=== PATIENT | female | born 1955 | race Caucasian/White ===

== ENCOUNTER → 2017-04-03 | Outpatient (CLI) | payer OTHER ==
[~2017-04-03] MED LIST: ACID1TAB7 PO; BACI1TAB3 PO; CIPR500T87 PO; ESCI10TA10 PO; ESCI20TA PO; LATA2.5D3 EACHEYE; LOPE2TAB PO; METR500T PO; MULT-34 PO; OMEP40CA6 PO; PROM12.553 RC; PROM25TA10 PO; PROP60CA8 PO; TRAZ100T15 PO; TRAZ150T68 PO
== END | disposition home or self-care (01) ==
LOC: CFH 13:34
PROVIDERS: ATTEND Internal Medicine Cardiovascular Disease
DX: I08.3 Combined rheumatic disorders of mitral, aortic and tricuspid valves (principal)
CPT/HCPCS: 93306

== ENCOUNTER 2017-06-08 22:47 | Inpatient (IN) | payer OTHER ==
[~2017-06-08] VITALS: Ht 152.4 cm; Wt 69.2 kg
[~2017-06-08 22:47] MED LIST changes: -LOPE2TAB PO; +LOPE2TAB26 PO; +TRAZ150T62 PO; -TRAZ150T68 PO
[2017-06-08] MEDS ORDERED: LORazepam 2 MG/ML, 1ML ONE (23:25)
[2017-06-08] MEDS ORDERED: PROMETHAZINE 25 MG/ML, 1ML ONE (23:25)
[2017-06-08] MEDS ORDERED: ONDANSETRON 2MG/ML, 2ML ONE (23:26)
[2017-06-08] MEDS ORDERED: MORPHINE SULFATE 4 MG/ML, 1ML ONE (23:26)
[2017-06-08] MEDS ORDERED: THIAMINE 100 MG in SODIUM CHLORIDE 0.9% 50 ML IVPB ONE (23:30)
[2017-06-08] MEDS ORDERED: LORazepam 2 MG/ML, 1ML IVPush ONE (23:30)
[2017-06-08] MEDS ORDERED: MORPHINE SULFATE 4 MG/ML, 1ML IVPush PRN (23:30)
[2017-06-08] MEDS ORDERED: SODIUM CHLORIDE 0.9% 1,000ML IVBOLUS ONE ×2 (23:30)
[2017-06-08] MEDS ORDERED: SODIUM CHLORIDE FLUSH 10ML SYR IVF ONE (23:30)
[2017-06-08] MEDS ORDERED: ONDANSETRON 2MG/ML, 2ML IVPush ONE (23:30)
[2017-06-08] MEDS ORDERED: PROMETHAZINE 25 MG/ML, 1ML IM ONE (23:30)
[2017-06-08 23:37] LABS: ASPARTATE AMINO TRANSFERASE 509 U/L (15-37); BLOOD UREA NITROGEN 2 mg/dL (7-18)
[2017-06-08 23:43] LABS: HEMATOCRIT 38.9 % (34.6-47.8); HEMOGLOBIN 12.5 g/dL (11.7-16.4)
[2017-06-09] MEDS ORDERED: MAGNESIUM SULFATE 1 GM, THIAMINE 100 MG, FOLIC ACID 1 MG, MVI ADULT 10 ML in SODIUM CHL... IV ONE
[2017-06-09] MEDS: LORazepam 2 MG/ML, 1ML IVPush PRN ×4 (00:08→11:41)
[2017-06-09] MEDS ORDERED: BISACODYL 10 MG SUPP PR PRN (00:30)
[2017-06-09] MEDS ORDERED: morphine SULFATE 10 MG/ML, 1ML IVPush PRN (00:30)
[2017-06-09] MEDS: SUCRALFATE 1 GM TABLET PO SCH ×5 (00:30→21:00)
[2017-06-09] MEDS ORDERED: POLYETHYLENE GLYCOL 17 GM PACKET PO PRN (00:30)
[2017-06-09] MEDS ORDERED: LORazepam 2 MG/ML, 1ML ONE (00:31)
[2017-06-09] MEDS ORDERED: ONDANSETRON 2MG/ML, 2ML ONE (00:57)
[2017-06-09] MEDS ORDERED: OMEP40CA6 PO (01:12)
[2017-06-09] MEDS ORDERED: PROZAC (01:12)
[2017-06-09] MEDS: ONDANSETRON 2MG/ML, 2ML IVPush PRN ×2 (01:32→08:44)
[2017-06-09 02:40] VITALS: BP 126/75
[2017-06-09] MEDS: LACTOBACILLUS CHEW TABLET PO SCH ×3 (03:59→16:00)
[2017-06-09] MEDS: LATANOPROST OPHTH 0.005%, 2.5ML EACHEYE SCH ×2 (03:59→20:40)
[2017-06-09] MEDS: CEFTRIAXONE PMX 1GM/50ML 50 ML IV SCH (04:44)
[2017-06-09] MEDS: NS + 20MEQ KCL 1,000 ML IV SCH ×3 (04:45→21:40)
[2017-06-09 05:47] LABS: ASPARTATE AMINO TRANSFERASE 325 U/L (15-37); BLOOD UREA NITROGEN 1 mg/dL (7-18); HEMATOCRIT 30.5 % (34.6-47.8); HEMOGLOBIN 10.1 g/dL (11.7-16.4); WHITE BLOOD COUNT 8.2 x10^3/uL (3.4-10)
[2017-06-09] MEDS ORDERED: POTASSIUM CHLORIDE 20 MEQ TAB.ER.PRT PO ONE ×2 (07:00)
[2017-06-09] MEDS ORDERED: POTASSIUM CHLORIDE 40 MEQ in SODIUM CHLORIDE 0.9% 500 ML IV ONE ×2 (07:30)
[2017-06-09] MEDS: PANTOPROZOLE 40MG TABLET PO SCH (07:30)
[2017-06-09] MEDS: SENNA/DOCUSATE TABLET PO SCH (08:01)
[2017-06-09 08:22] LABS: BLOOD UREA NITROGEN 2 mg/dL (7-18)
[2017-06-09] MEDS: PROPRANOLOL 40 MG TABLET PO SCH (08:24)
[2017-06-09 08:40] VITALS: BP 113/82
[2017-06-09] MEDS: MULTIVITAMINS/MINERALS TABLET PO SCH (08:45)
[2017-06-09] MEDS: TEMPLATE NON-FORMULARY MED. (Escitalopram Oxalate** 20 MG) HOMEMEDPO SCH (08:45)
[2017-06-09] MEDS: TRAZODONE 150MG TABLET PO SCH (08:45)
[2017-06-09] MEDS ORDERED: FOLIC ACID 1 MG TABLET PO SCH (09:00)
[2017-06-09] MEDS ORDERED: SODIUM PHOSPHATE 20 MMOL in SODIUM CHLORIDE 0.9% 500 ML IV ONE (09:00)
[2017-06-09] MEDS ORDERED: THIAMINE 100MG TABLET PO SCH (09:00)
[2017-06-09 13:00] VITALS: BP 137/84
[2017-06-09 14:34] LABS: BLOOD UREA NITROGEN 2 mg/dL (7-18)
[2017-06-09 20:00] VITALS: BP 133/93
[2017-06-09 20:19] LABS: BLOOD UREA NITROGEN 2 mg/dL (7-18)
[2017-06-09] MEDS: LACTULOSE 10 GM/15 ML UDC PO SCH (20:40)
[2017-06-09] MEDS: MAGNESIUM OXIDE 400 MG TABLET PO SCH (21:00)
[2017-06-10 02:00] VITALS: BP 149/95
[2017-06-10] MEDS: LACTOBACILLUS CHEW TABLET PO SCH ×4 (02:59→21:39)
[2017-06-10] MEDS: PROPRANOLOL 40 MG TABLET PO SCH ×3 (02:59→21:00)
[2017-06-10] MEDS: POTASSIUM CHLORIDE 20 MEQ TAB.ER.PRT PO SCH ×3 (03:00→16:54)
[2017-06-10] MEDS: CEFTRIAXONE PMX 1GM/50ML 50 ML IV SCH (04:49)
[2017-06-10] MEDS: LORazepam 2 MG/ML, 1ML IVPush PRN (05:34)
[2017-06-10 06:19] LABS: HEMATOCRIT 32.3 % (34.6-47.8); HEMOGLOBIN 10.6 g/dL (11.7-16.4); WHITE BLOOD COUNT 11.1 x10^3/uL (3.4-10)
[2017-06-10 06:30] LABS: ASPARTATE AMINO TRANSFERASE 271 U/L (15-37); BLOOD UREA NITROGEN 3 mg/dL (7-18)
[2017-06-10] MEDS: PANTOPROZOLE 40MG TABLET PO SCH (07:30)
[2017-06-10] MEDS: NS + 20MEQ KCL 1,000 ML IV SCH (07:30)
[2017-06-10 07:40] VITALS: BP 100/70
[2017-06-10] MEDS ORDERED: POTASSIUM CHLORIDE 40 MEQ in SODIUM CHLORIDE 0.9% 500 ML IV ONE (08:00)
[2017-06-10] MEDS ORDERED: LORazepam 2 MG/ML, 1ML IVPush ONE (08:00)
[2017-06-10] MEDS: TEMPLATE NON-FORMULARY MED. (Escitalopram Oxalate** 20 MG) HOMEMEDPO SCH (08:15)
[2017-06-10] MEDS: MULTIVITAMINS/MINERALS TABLET PO SCH (09:00)
[2017-06-10] MEDS: SENNA/DOCUSATE TABLET PO SCH (09:00)
[2017-06-10] MEDS: TRAZODONE 150MG TABLET PO SCH (09:00)
[2017-06-10] MEDS ORDERED: POTASSIUM CHLORIDE 20 MEQ, MAGNESIUM SULFATE 1 GM, THIAMINE 100 MG, FOLIC ACID 1 MG, MV... IV SCH (09:00)
[2017-06-10 09:26] LABS: ABG COLLECTION SITE RIGHT RADIAL; COLLATERAL CIRCULATION TESTING NORMAL
[2017-06-10] MEDS: SUCRALFATE 1 GM TABLET PO SCH ×4 (10:52→21:39)
[2017-06-10] MEDS: MAGNESIUM OXIDE 400 MG TABLET PO SCH ×2 (10:52→21:39)
[2017-06-10] MEDS: LACTULOSE 10 GM/15 ML UDC PO SCH (10:52)
[2017-06-10] MEDS: POTASSIUM CHLORIDE 20 MEQ, MAGNESIUM SULFATE 1 GM, THIAMINE 100 MG, FOLIC ACID 1 MG, MV... IV SCH ×2 (11:26→14:01)
[2017-06-10] MEDS: LORazepam 2 MG/ML, 1ML IV PRN ×3 (11:26→21:40)
[2017-06-10] MEDS ORDERED: LORazepam 2 MG/ML, 1ML IVPush PRN (11:30)
[2017-06-10] MEDS ORDERED: LORazepam 2 MG/ML, 1ML IV PRN ×2 (11:30)
[2017-06-10] MEDS: D5%-0.45NACL+KCL 40MEQ 1,000 ML IV SCH ×2 (11:30→21:39)
[2017-06-10 11:46] LABS: BLOOD UREA NITROGEN 4 mg/dL (7-18)
[2017-06-10] MEDS ORDERED: SODIUM PHOSPHATE 20 MMOL in SODIUM CHLORIDE 0.9% 500 ML IV ONE (12:30)
[2017-06-10 13:23] VITALS: BP 118/79
[2017-06-10] MEDS: LACTULOSE 20 GM/30 ML UDC PO SCH ×2 (16:58→21:41)
[2017-06-10 19:49] VITALS: BP 111/78
[2017-06-10] MEDS: LATANOPROST OPHTH 0.005%, 2.5ML EACHEYE SCH (21:40)
[2017-06-10] MEDS ORDERED: PANTOPRAZOLE 80 MG in SODIUM CHLORIDE 0.9% 50 ML IV ONE (23:00)
[2017-06-11] MEDS: PANTOPRAZOLE 80 MG in SODIUM CHLORIDE 0.9% 100 ML IV SCH ×3 (00:16→20:29)
[2017-06-11] MEDS: LORazepam 2 MG/ML, 1ML IV PRN ×3 (01:00→07:32)
[2017-06-11 01:05] VITALS: BP 132/70
[2017-06-11] MEDS: CEFTRIAXONE PMX 1GM/50ML 50 ML IV SCH (04:30)
[2017-06-11] MEDS: SUCRALFATE 1 GM TABLET PO SCH ×4 (06:22→20:43)
[2017-06-11 07:15] VITALS: BP 125/90
[2017-06-11] MEDS: D5%-0.45NACL+KCL 40MEQ 1,000 ML IV SCH ×2 (07:30→20:32)
[2017-06-11 07:38] LABS: HEMATOCRIT 31.5 % (34.6-47.8); HEMOGLOBIN 10.1 g/dL (11.7-16.4); WHITE BLOOD COUNT 11.6 x10^3/uL (3.4-10)
[2017-06-11 07:39] LABS: ASPARTATE AMINO TRANSFERASE 269 U/L (15-37); BLOOD UREA NITROGEN 5 mg/dL (7-18)
[2017-06-11] MEDS: MULTIVITAMINS/MINERALS TABLET PO SCH (07:48)
[2017-06-11] MEDS: SENNA/DOCUSATE TABLET PO SCH (07:48)
[2017-06-11 08:10] LABS: ANISOCYTOSIS 3+; HYPOCHROMIA 1+; POIKILOCYTOSIS 2+; TARGET CELLS 1+
[2017-06-11 08:11] LABS: OVALOCYTES 1+; POLYCHROMASIA 1+
[2017-06-11] MEDS ORDERED: MIDAZOLAM HCL 25 MG in SODIUM CHLORIDE 0.9% 245 ML IV PRN (08:58)
[2017-06-11] MEDS ORDERED: POTASSIUM PHOSPHATE 44 MEQ in SODIUM CHLORIDE 0.9% 500 ML IV ONE (09:00)
[2017-06-11] MEDS ORDERED: PHARMACY MAY ADJ FOR RENAL FX MC SCH (09:00)
[2017-06-11] MEDS: TEMPLATE NON-FORMULARY MED. (Escitalopram Oxalate** 20 MG) HOMEMEDPO SCH (09:00)
[2017-06-11] MEDS ORDERED: LIDOCAINE-MPF 1%, 2ML ENDO PRN (09:00)
[2017-06-11] MEDS: POTASSIUM CHLORIDE 20 MEQ TAB.ER.PRT PO SCH (10:25)
[2017-06-11] MEDS: MAGNESIUM OXIDE 400 MG TABLET PO SCH ×2 (10:25→20:43)
[2017-06-11] MEDS: POTASSIUM CHLORIDE 20 MEQ, MAGNESIUM SULFATE 1 GM, THIAMINE 100 MG, FOLIC ACID 1 MG, MV... IV SCH (10:25)
[2017-06-11] MEDS: LACTULOSE 20 GM/30 ML UDC PO SCH ×3 (10:26→20:43)
[2017-06-11] MEDS: LACTOBACILLUS CHEW TABLET PO SCH ×3 (10:26→20:43)
[2017-06-11] MEDS: PROPRANOLOL 40 MG TABLET PO SCH ×2 (10:27→20:43)
[2017-06-11 10:54] LABS: ABG COLLECTION SITE RIGHT RADIAL; COLLATERAL CIRCULATION TESTING NORMAL
[2017-06-11] MEDS ORDERED: LIDOCAINE 1%, 50ML ONE (11:59)
[2017-06-11] MEDS ORDERED: ROCURONIUM 10 MG/ML IVPush ONE (12:30)
[2017-06-11] MEDS ORDERED: VECURONIUM 10 MG IVPush ONE (13:00)
[2017-06-11] MEDS ORDERED: SUGAMMADEX 200 MG/2 ML IVPush ONE (13:30)
[2017-06-11] MEDS ORDERED: CHLORDIAZEPOXIDE 25 MG CAPSULE PO PRN (16:00)
[2017-06-11] MEDS ORDERED: SODIUM CHLORIDE 0.9% 1,000ML IVBOLUS ONE (16:00)
[2017-06-11] MEDS ORDERED: POTASSIUM CHLORIDE 20 MEQ PACKET PO SCH (17:00)
[2017-06-11] MEDS ORDERED: ROCURONIUM 10 MG/ML ONE (17:13)
[2017-06-11] MEDS ORDERED: PICC FLUSH PROTOCOL XX SCH (18:30)
[2017-06-11] MEDS: TRAZODONE 150MG TABLET PO SCH (20:43)
[2017-06-11] MEDS: LATANOPROST OPHTH 0.005%, 2.5ML EACHEYE SCH (20:43)
[2017-06-11] MEDS: NOREPINEPHRINE 4 MG in SODIUM CHLORIDE 0.9% 246 ML IV PRN (21:23)
[2017-06-11] MEDS: MIDAZOLAM HCL 50 MG in SODIUM CHLORIDE 0.9% 240 ML IV PRN (21:47)
[2017-06-12] MEDS: CEFTRIAXONE PMX 1GM/50ML 50 ML IV SCH (04:30)
[2017-06-12 04:41] LABS: ABG COLLECTION SITE LEFT RADIAL; COLLATERAL CIRCULATION TESTING NORMAL
[2017-06-12 05:00] VITALS: BP 108/72
[2017-06-12 05:59] LABS: HEMATOCRIT 31.1 % (34.6-47.8); WHITE BLOOD COUNT 9.9 x10^3/uL (3.4-10)
[2017-06-12 06:08] LABS: BLOOD UREA NITROGEN 4 mg/dL (7-18)
[2017-06-12 06:21] LABS: HYPOCHROMIA 1+; POLYCHROMASIA 1+
[2017-06-12 06:22] LABS: ANISOCYTOSIS 2+; OVALOCYTES 1+; TARGET CELLS 1+
[2017-06-12 06:23] LABS: POIKILOCYTOSIS 1+
[2017-06-12] MEDS: SUCRALFATE 1 GM TABLET PO SCH ×4 (07:08→20:39)
[2017-06-12] MEDS: PANTOPRAZOLE 80 MG in SODIUM CHLORIDE 0.9% 100 ML IV SCH (07:09)
[2017-06-12] MEDS: NOREPINEPHRINE 4 MG in SODIUM CHLORIDE 0.9% 246 ML IV PRN ×3 (07:11→21:47)
[2017-06-12] MEDS: MIDAZOLAM HCL 50 MG in SODIUM CHLORIDE 0.9% 240 ML IV PRN (07:11)
[2017-06-12] MEDS ORDERED: MIDAZOLAM HCL 25 MG in SODIUM CHLORIDE 0.9% 245 ML IV PRN (08:58)
[2017-06-12] MEDS: PROPRANOLOL 40 MG TABLET PO SCH ×2 (09:00→20:39)
[2017-06-12] MEDS: SENNA/DOCUSATE TABLET PO SCH (09:00)
[2017-06-12] MEDS: TEMPLATE NON-FORMULARY MED. (Escitalopram Oxalate** 20 MG) HOMEMEDPO SCH (09:00)
[2017-06-12] MEDS: LACTULOSE 20 GM/30 ML UDC PO SCH ×3 (09:08→20:39)
[2017-06-12] MEDS: TRAZODONE 150MG TABLET PO SCH (09:08)
[2017-06-12] MEDS: LACTOBACILLUS CHEW TABLET PO SCH ×3 (09:08→20:39)
[2017-06-12] MEDS: PANTOPRAZOLE 40 MG IV IVPush SCH ×2 (09:08→19:30)
[2017-06-12] MEDS: FOLIC ACID 1 MG TABLET PO SCH (09:08)
[2017-06-12] MEDS: CHLORDIAZEPOXIDE 25 MG CAPSULE PO SCH ×3 (09:08→21:24)
[2017-06-12] MEDS: MULTIVITAMIN LIQUID PO SCH (09:08)
[2017-06-12] MEDS: MAGNESIUM OXIDE 400 MG TABLET PO SCH ×2 (09:08→20:39)
[2017-06-12] MEDS: DIAZEPAM 5 MG/ML, 2ML IVPush SCH ×3 (09:09→21:31)
[2017-06-12] MEDS: SODIUM CHLORIDE 0.45% 1,000 ML IV SCH ×2 (09:11→20:30)
[2017-06-12] MEDS ORDERED: BENZOCAINE AEROSOL SPRAY 20%, 60ML TP ONE (10:30)
[2017-06-12] MEDS ORDERED: D5%-0.45NACL+KCL 40MEQ 1,000 ML IV SCH (11:30)
[2017-06-12] MEDS ORDERED: SODIUM PHOSPHATE 20 MMOL in SODIUM CHLORIDE 0.9% 500 ML IV ONE (12:30)
[2017-06-12] MEDS ORDERED: BENZOCAINE AEROSOL SPRAY 20%, 60ML TP PRN (15:40)
[2017-06-12] MEDS: LATANOPROST OPHTH 0.005%, 2.5ML EACHEYE SCH (20:39)
[2017-06-13] MEDS: DIAZEPAM 5 MG/ML, 2ML IVPush SCH ×3 (03:33→19:10)
[2017-06-13] MEDS: CEFTRIAXONE PMX 1GM/50ML 50 ML IV SCH (04:30)
[2017-06-13 04:35] LABS: ABG COLLECTION SITE RIGHT RADIAL; COLLATERAL CIRCULATION TESTING NORMAL
[2017-06-13 05:00] VITALS: BP 108/61
[2017-06-13 05:21] LABS: BLOOD UREA NITROGEN 3 mg/dL (7-18)
[2017-06-13 05:23] LABS: HEMATOCRIT 32.1 % (34.6-47.8); HEMOGLOBIN 10.3 g/dL (11.7-16.4); WHITE BLOOD COUNT 10.4 x10^3/uL (3.4-10)
[2017-06-13] MEDS: SUCRALFATE 1 GM TABLET PO SCH ×4 (07:28→21:09)
[2017-06-13] MEDS ORDERED: DIAZEPAM 5 MG/ML, 2ML IVPush SCH (08:30)
[2017-06-13] MEDS: PROPRANOLOL 40 MG TABLET PO SCH ×2 (09:00→21:00)
[2017-06-13] MEDS: TEMPLATE NON-FORMULARY MED. (Escitalopram Oxalate** 20 MG) HOMEMEDPO SCH (09:00)
[2017-06-13] MEDS ORDERED: POTASSIUM PHOSPHATE 44 MEQ in SODIUM CHLORIDE 0.9% 500 ML IV ONE (09:00)
[2017-06-13] MEDS: PANTOPRAZOLE 40 MG IV IVPush SCH ×2 (09:37→21:09)
[2017-06-13] MEDS: CHLORDIAZEPOXIDE 25 MG CAPSULE PO SCH ×3 (09:37→22:20)
[2017-06-13] MEDS: LACTOBACILLUS CHEW TABLET PO SCH ×3 (09:37→21:09)
[2017-06-13] MEDS: SENNA/DOCUSATE TABLET PO SCH (09:38)
[2017-06-13] MEDS: MULTIVITAMIN LIQUID PO SCH (09:38)
[2017-06-13] MEDS: FOLIC ACID 1 MG TABLET PO SCH (09:38)
[2017-06-13] MEDS: MAGNESIUM OXIDE 400 MG TABLET PO SCH ×2 (09:38→21:10)
[2017-06-13] MEDS: TRAZODONE 150MG TABLET PO SCH (09:38)
[2017-06-13] MEDS: NOREPINEPHRINE 4 MG in SODIUM CHLORIDE 0.9% 246 ML IV PRN ×2 (09:39→19:11)
[2017-06-13] MEDS: POTASSIUM CHLORIDE 10% 40 MEQ/30 ML UDC PO SCH ×2 (09:39→16:59)
[2017-06-13] MEDS: LACTULOSE 20 GM/30 ML UDC PO SCH ×3 (09:41→21:10)
[2017-06-13] MEDS: SODIUM CHLORIDE 0.45% 1,000 ML IV SCH (16:01)
[2017-06-13] MEDS: MIDAZOLAM HCL 50 MG in SODIUM CHLORIDE 0.9% 240 ML IV PRN (17:28)
[2017-06-13] MEDS: LATANOPROST OPHTH 0.005%, 2.5ML EACHEYE SCH (21:09)
[2017-06-14] MEDS: DIAZEPAM 5 MG/ML, 2ML IVPush SCH ×5 (00:10→23:50)
[2017-06-14] MEDS: SODIUM CHLORIDE 0.45% 1,000 ML IV SCH ×2 (02:14→22:39)
[2017-06-14] MEDS: NOREPINEPHRINE 4 MG in SODIUM CHLORIDE 0.9% 246 ML IV PRN ×4 (02:17→22:39)
[2017-06-14 04:20] VITALS: BP 97/67
[2017-06-14] MEDS: CEFTRIAXONE PMX 1GM/50ML 50 ML IV SCH (04:25)
[2017-06-14 04:29] LABS: ABG COLLECTION SITE RIGHT RADIAL; COLLATERAL CIRCULATION TESTING NORMAL
[2017-06-14 04:56] LABS: ASPARTATE AMINO TRANSFERASE 113 U/L (15-37); BLOOD UREA NITROGEN 5 mg/dL (7-18)
[2017-06-14 05:00] LABS: HEMATOCRIT 34.3 % (34.6-47.8); HEMOGLOBIN 11.2 g/dL (11.7-16.4); WHITE BLOOD COUNT 10.3 x10^3/uL (3.4-10)
[2017-06-14] MEDS: SUCRALFATE 1 GM TABLET PO SCH ×4 (06:40→21:12)
[2017-06-14] MEDS: PANTOPRAZOLE 40 MG IV IVPush SCH ×2 (07:35→20:11)
[2017-06-14] MEDS: LACTOBACILLUS CHEW TABLET PO SCH ×3 (08:54→21:12)
[2017-06-14] MEDS: MAGNESIUM OXIDE 400 MG TABLET PO SCH ×2 (08:54→21:12)
[2017-06-14] MEDS: SENNA/DOCUSATE TABLET PO SCH (08:55)
[2017-06-14] MEDS: FOLIC ACID 1 MG TABLET PO SCH (08:55)
[2017-06-14] MEDS: CHLORDIAZEPOXIDE 25 MG CAPSULE PO SCH ×3 (08:55→21:12)
[2017-06-14] MEDS: MULTIVITAMIN LIQUID PO SCH (08:55)
[2017-06-14] MEDS: PROPRANOLOL 40 MG TABLET PO SCH ×2 (08:55→21:00)
[2017-06-14] MEDS: LACTULOSE 20 GM/30 ML UDC PO SCH ×3 (08:55→21:12)
[2017-06-14] MEDS: TRAZODONE 150MG TABLET PO SCH (08:56)
[2017-06-14] MEDS: TEMPLATE NON-FORMULARY MED. (Escitalopram Oxalate** 20 MG) HOMEMEDPO SCH (08:56)
[2017-06-14] MEDS ORDERED: SODIUM PHOSPHATE 20 MMOL in SODIUM CHLORIDE 0.9% 500 ML IV ONE (12:30)
[2017-06-14] MEDS ORDERED: SODIUM CHLORIDE 0.9% 1,000 ML IV ONE (12:30)
[2017-06-14] MEDS: HYDROCORTISONE 100 MG INJ. IVPush SCH (15:59)
[2017-06-14] MEDS ORDERED: CATHFLO-ALTEPLASE 2 MG/2 ML CATHFLUSH ONE (17:00)
[2017-06-14] MEDS: LATANOPROST OPHTH 0.005%, 2.5ML EACHEYE SCH (21:12)
[2017-06-15] MEDS: HYDROCORTISONE 100 MG INJ. IVPush SCH ×3 (02:07→18:03)
[2017-06-15 04:00] VITALS: BP 98/64
[2017-06-15] MEDS: CEFTRIAXONE PMX 1GM/50ML 50 ML IV SCH (04:01)
[2017-06-15 04:26] LABS: BLOOD UREA NITROGEN 7 mg/dL (7-18)
[2017-06-15 04:40] LABS: ABG COLLECTION SITE RIGHT RADIAL
[2017-06-15] MEDS: NOREPINEPHRINE 4 MG in SODIUM CHLORIDE 0.9% 246 ML IV PRN ×2 (04:56→15:12)
[2017-06-15 04:59] LABS: HEMATOCRIT 35.4 % (34.6-47.8); HEMOGLOBIN 11.4 g/dL (11.7-16.4); WHITE BLOOD COUNT 8.8 x10^3/uL (3.4-10)
[2017-06-15] MEDS: DIAZEPAM 5 MG/ML, 2ML IVPush SCH ×4 (05:36→22:52)
[2017-06-15 05:41] LABS: COLLATERAL CIRCULATION TESTING NORMAL
[2017-06-15] MEDS: PANTOPRAZOLE 40 MG IV IVPush SCH ×2 (06:35→18:02)
[2017-06-15] MEDS: SUCRALFATE 1 GM TABLET PO SCH ×4 (06:35→20:50)
[2017-06-15] MEDS: SODIUM CHLORIDE 0.45% 1,000 ML IV SCH ×3 (06:37→23:29)
[2017-06-15] MEDS: PROPRANOLOL 40 MG TABLET PO SCH (09:00)
[2017-06-15] MEDS: TEMPLATE NON-FORMULARY MED. (Escitalopram Oxalate** 20 MG) HOMEMEDPO SCH (09:00)
[2017-06-15] MEDS: SENNA/DOCUSATE TABLET PO SCH (09:00)
[2017-06-15] MEDS: FOLIC ACID 1 MG TABLET PO SCH (11:12)
[2017-06-15] MEDS: CHLORDIAZEPOXIDE 25 MG CAPSULE PO SCH ×3 (11:13→20:50)
[2017-06-15] MEDS: MULTIVITAMIN LIQUID PO SCH (11:13)
[2017-06-15] MEDS: TRAZODONE 150MG TABLET PO SCH (11:13)
[2017-06-15] MEDS: MAGNESIUM OXIDE 400 MG TABLET PO SCH ×2 (11:13→20:50)
[2017-06-15] MEDS: LACTOBACILLUS CHEW TABLET PO SCH ×3 (11:14→20:50)
[2017-06-15] MEDS: LACTULOSE 20 GM/30 ML UDC PO SCH ×3 (11:14→20:50)
[2017-06-15] MEDS ORDERED: POTASSIUM PHOSPHATE 44 MEQ in SODIUM CHLORIDE 0.9% 500 ML IV ONE (12:30)
[2017-06-15] MEDS: LATANOPROST OPHTH 0.005%, 2.5ML EACHEYE SCH (20:50)
[2017-06-16] MEDS: NOREPINEPHRINE 4 MG in SODIUM CHLORIDE 0.9% 246 ML IV PRN ×2 (01:58→14:04)
[2017-06-16] MEDS: HYDROCORTISONE 100 MG INJ. IVPush SCH ×3 (01:58→18:30)
[2017-06-16 04:15] VITALS: BP 116/69
[2017-06-16 04:26] LABS: ABG COLLECTION SITE RIGHT RADIAL; COLLATERAL CIRCULATION TESTING NORMAL
[2017-06-16] MEDS: DIAZEPAM 5 MG/ML, 2ML IVPush SCH ×4 (04:45→21:16)
[2017-06-16] MEDS: CEFTRIAXONE PMX 1GM/50ML 50 ML IV SCH (04:45)
[2017-06-16 05:23] LABS: BLOOD UREA NITROGEN 10 mg/dL (7-18)
[2017-06-16 05:27] LABS: ASPARTATE AMINO TRANSFERASE 99 U/L (15-37)
[2017-06-16] MEDS: SUCRALFATE 1 GM TABLET PO SCH ×4 (06:46→21:00)
[2017-06-16] MEDS: PANTOPRAZOLE 40 MG IV IVPush SCH ×2 (06:48→18:30)
[2017-06-16 06:54] LABS: HEMATOCRIT 35.9 % (34.6-47.8); HEMOGLOBIN 11.5 g/dL (11.7-16.4); WHITE BLOOD COUNT 10.3 x10^3/uL (3.4-10)
[2017-06-16 07:12] LABS: DIFF TOTAL CELLS COUNTED 100 CELL DIFF
[2017-06-16 07:15] LABS: ANISOCYTOSIS 1+; LARGE PLATELETS 1+; POLYCHROMASIA 1+; VERIFY COUNTS? YES
[2017-06-16] MEDS: SODIUM CHLORIDE 0.45% 1,000 ML IV SCH (08:05)
[2017-06-16] MEDS ORDERED: SODIUM CHLORIDE 0.45% 1,000 ML IV SCH (08:30)
[2017-06-16] MEDS ORDERED: POTASSIUM PHOSPHATE 44 MEQ in SODIUM CHLORIDE 0.9% 500 ML IV ONE (08:30)
[2017-06-16] MEDS: SENNA/DOCUSATE TABLET PO SCH (09:00)
[2017-06-16] MEDS: TEMPLATE NON-FORMULARY MED. (Escitalopram Oxalate** 20 MG) HOMEMEDPO SCH (09:00)
[2017-06-16] MEDS: MULTIVITAMIN LIQUID PO SCH (09:13)
[2017-06-16] MEDS: LACTULOSE 20 GM/30 ML UDC PO SCH ×3 (09:13→20:59)
[2017-06-16] MEDS: MAGNESIUM OXIDE 400 MG TABLET PO SCH ×2 (09:13→20:59)
[2017-06-16] MEDS: CHLORDIAZEPOXIDE 25 MG CAPSULE PO SCH ×4 (09:13→21:01)
[2017-06-16] MEDS: FOLIC ACID 1 MG TABLET PO SCH (09:14)
[2017-06-16] MEDS: LACTOBACILLUS CHEW TABLET PO SCH ×3 (09:14→21:00)
[2017-06-16] MEDS: LATANOPROST OPHTH 0.005%, 2.5ML EACHEYE SCH (20:59)
[2017-06-16] MEDS: TRAZODONE 150MG TABLET PO SCH (21:00)
[2017-06-17] MEDS: HYDROCORTISONE 100 MG INJ. IVPush SCH ×3 (01:25→18:26)
[2017-06-17 04:00] VITALS: BP 84/55
[2017-06-17] MEDS: DIAZEPAM 5 MG/ML, 2ML IVPush SCH ×4 (04:04→23:00)
[2017-06-17] MEDS: CEFTRIAXONE PMX 1GM/50ML 50 ML IV SCH (04:13)
[2017-06-17 04:34] LABS: ABG COLLECTION SITE RIGHT RADIAL; COLLATERAL CIRCULATION TESTING NORMAL
[2017-06-17 04:52] LABS: BLOOD UREA NITROGEN 17 mg/dL (7-18)
[2017-06-17 05:01] LABS: ASPARTATE AMINO TRANSFERASE 130 U/L (15-37)
[2017-06-17 05:46] LABS: HEMATOCRIT 33.1 % (34.6-47.8); HEMOGLOBIN 10.8 g/dL (11.7-16.4); WHITE BLOOD COUNT 12.4 x10^3/uL (3.4-10)
[2017-06-17 05:47] LABS: DIFF TOTAL CELLS COUNTED 100 CELL DIFF
[2017-06-17 05:48] LABS: VERIFY COUNTS? YES
[2017-06-17 05:49] LABS: ANISOCYTOSIS 1+; LARGE PLATELETS 1+; POLYCHROMASIA 1+
[2017-06-17] MEDS: SUCRALFATE 1 GM TABLET PO SCH ×4 (06:43→21:05)
[2017-06-17] MEDS: PANTOPRAZOLE 40 MG IV IVPush SCH ×2 (06:43→19:29)
[2017-06-17] MEDS: TRAZODONE 150MG TABLET PO SCH (08:58)
[2017-06-17] MEDS: LACTOBACILLUS CHEW TABLET PO SCH ×3 (08:58→21:05)
[2017-06-17] MEDS: CHLORDIAZEPOXIDE 25 MG CAPSULE PO SCH ×3 (08:58→21:05)
[2017-06-17] MEDS: LACTULOSE 20 GM/30 ML UDC PO SCH ×3 (08:58→21:05)
[2017-06-17] MEDS: FOLIC ACID 1 MG TABLET PO SCH (08:58)
[2017-06-17] MEDS: SENNA/DOCUSATE TABLET PO SCH (08:59)
[2017-06-17] MEDS: MAGNESIUM OXIDE 400 MG TABLET PO SCH ×2 (08:59→21:05)
[2017-06-17] MEDS: MULTIVITAMIN LIQUID PO SCH (08:59)
[2017-06-17] MEDS: TEMPLATE NON-FORMULARY MED. (Escitalopram Oxalate** 20 MG) HOMEMEDPO SCH (08:59)
[2017-06-17] MEDS: NOREPINEPHRINE 4 MG in SODIUM CHLORIDE 0.9% 246 ML IV PRN (14:53)
[2017-06-17] MEDS: LATANOPROST OPHTH 0.005%, 2.5ML EACHEYE SCH (21:05)
[2017-06-18] MEDS: HYDROCORTISONE 100 MG INJ. IVPush SCH ×3 (02:00→18:11)
[2017-06-18 03:23] LABS: ASPARTATE AMINO TRANSFERASE 194 U/L (15-37); BLOOD UREA NITROGEN 23 mg/dL (7-18)
[2017-06-18 03:26] LABS: HEMATOCRIT 32.6 % (34.6-47.8); HEMOGLOBIN 10.6 g/dL (11.7-16.4); WHITE BLOOD COUNT 14.4 x10^3/uL (3.4-10)
[2017-06-18 03:52] LABS: DIFF TOTAL CELLS COUNTED 100 CELL DIFF
[2017-06-18 03:56] LABS: ANISOCYTOSIS 1+; POLYCHROMASIA 1+; VERIFY COUNTS? YES
[2017-06-18 03:57] LABS: LARGE PLATELETS 1+
[2017-06-18 04:27] LABS: ABG COLLECTION SITE RIGHT RADIAL; COLLATERAL CIRCULATION TESTING NORMAL
[2017-06-18] MEDS: CEFTRIAXONE PMX 1GM/50ML 50 ML IV SCH (04:33)
[2017-06-18 05:00] VITALS: BP 122/75
[2017-06-18] MEDS: DIAZEPAM 5 MG/ML, 2ML IVPush SCH (05:00)
[2017-06-18] MEDS: SUCRALFATE 1 GM TABLET PO SCH ×4 (06:29→20:21)
[2017-06-18] MEDS ORDERED: DIAZEPAM 5 MG/ML, 2ML IVPush PRN (08:30)
[2017-06-18] MEDS: PANTOPRAZOLE 40 MG IV IVPush SCH ×2 (08:55→19:30)
[2017-06-18] MEDS: HEPARIN 5,000 UNITS/ML, 1ML SQ SCH ×2 (08:55→17:02)
[2017-06-18] MEDS: SENNA/DOCUSATE TABLET PO SCH (09:00)
[2017-06-18] MEDS: TEMPLATE NON-FORMULARY MED. (Escitalopram Oxalate** 20 MG) HOMEMEDPO SCH (09:00)
[2017-06-18] MEDS ORDERED: POTASSIUM CHLORIDE 20 MEQ TAB.ER.PRT PO ONE (10:30)
[2017-06-18] MEDS ORDERED: POTASSIUM CHLORIDE 20 MEQ PACKET PO ONE (10:30)
[2017-06-18] MEDS: MAGNESIUM OXIDE 400 MG TABLET PO SCH ×2 (10:33→20:21)
[2017-06-18] MEDS: CHLORDIAZEPOXIDE 25 MG CAPSULE PO SCH ×2 (10:33→20:21)
[2017-06-18] MEDS: LACTULOSE 20 GM/30 ML UDC PO SCH ×3 (10:33→20:21)
[2017-06-18] MEDS: FOLIC ACID 1 MG TABLET PO SCH (10:33)
[2017-06-18] MEDS: LACTOBACILLUS CHEW TABLET PO SCH ×3 (10:33→20:21)
[2017-06-18] MEDS: TRAZODONE 150MG TABLET PO SCH (10:33)
[2017-06-18] MEDS: MULTIVITAMIN LIQUID PO SCH (10:33)
[2017-06-18] MEDS: LATANOPROST OPHTH 0.005%, 2.5ML EACHEYE SCH (20:21)
[2017-06-19] MEDS: HEPARIN 5,000 UNITS/ML, 1ML SQ SCH ×3 (00:28→15:43)
[2017-06-19] MEDS: HYDROCORTISONE 100 MG INJ. IVPush SCH ×3 (02:24→18:23)
[2017-06-19 03:31] LABS: BLOOD UREA NITROGEN 26 mg/dL (7-18)
[2017-06-19] MEDS: CEFTRIAXONE PMX 1GM/50ML 50 ML IV SCH (04:34)
[2017-06-19 04:45] LABS: ABG COLLECTION SITE LEFT RADIAL; COLLATERAL CIRCULATION TESTING NORMAL
[2017-06-19 05:00] VITALS: BP 129/83
[2017-06-19] MEDS: SUCRALFATE 1 GM TABLET PO SCH ×4 (06:18→20:16)
[2017-06-19] MEDS: PANTOPRAZOLE 40 MG IV IVPush SCH ×2 (07:31→19:36)
[2017-06-19] MEDS: TEMPLATE NON-FORMULARY MED. (Escitalopram Oxalate** 20 MG) HOMEMEDPO SCH (09:00)
[2017-06-19] MEDS: SENNA/DOCUSATE TABLET PO SCH (09:00)
[2017-06-19] MEDS ORDERED: POTASSIUM PHOSPHATE 44 MEQ in SODIUM CHLORIDE 0.9% 500 ML IV ONE (09:30)
[2017-06-19 11:25] LABS: HEMATOCRIT 32.8 % (34.6-47.8); HEMOGLOBIN 10.6 g/dL (11.7-16.4); WHITE BLOOD COUNT 15.1 x10^3/uL (3.4-10)
[2017-06-19] MEDS: FOLIC ACID 1 MG TABLET PO SCH (11:26)
[2017-06-19] MEDS: CHLORDIAZEPOXIDE 25 MG CAPSULE PO SCH ×2 (11:26→20:16)
[2017-06-19] MEDS: TRAZODONE 150MG TABLET PO SCH (11:26)
[2017-06-19] MEDS: LACTOBACILLUS CHEW TABLET PO SCH ×3 (11:26→20:16)
[2017-06-19] MEDS: MULTIVITAMIN LIQUID PO SCH (14:24)
[2017-06-19] MEDS: OXYcodone 5 MG/5 ML ORAL.SOL UDC PO PRN ×2 (14:24→20:18)
[2017-06-19] MEDS: LATANOPROST OPHTH 0.005%, 2.5ML EACHEYE SCH (20:16)
[2017-06-20] MEDS: HEPARIN 5,000 UNITS/ML, 1ML SQ SCH ×3 (00:22→17:06)
[2017-06-20] MEDS: HYDROCORTISONE 100 MG INJ. IVPush SCH ×3 (00:22→20:45)
[2017-06-20 02:20] LABS: ASPARTATE AMINO TRANSFERASE 242 U/L (15-37); BLOOD UREA NITROGEN 28 mg/dL (7-18)
[2017-06-20 02:57] LABS: HEMOGLOBIN 9.5 g/dL (11.7-16.4); WHITE BLOOD COUNT 13.1 x10^3/uL (3.4-10)
[2017-06-20 02:58] LABS: DIFF TOTAL CELLS COUNTED 100 CELL DIFF
[2017-06-20 03:01] LABS: VERIFY COUNTS? YES
[2017-06-20 03:02] LABS: ANISOCYTOSIS 2+
[2017-06-20 03:03] LABS: POLYCHROMASIA 1+
[2017-06-20 03:04] LABS: TARGET CELLS 1+
[2017-06-20 03:05] LABS: OVALOCYTES 1+; SCHISTOCYTES 1+
[2017-06-20 03:07] LABS: LARGE PLATELETS 1+
[2017-06-20 04:00] VITALS: BP 116/80
[2017-06-20] MEDS: CEFTRIAXONE PMX 1GM/50ML 50 ML IV SCH (04:33)
[2017-06-20] MEDS: SUCRALFATE 1 GM TABLET PO SCH ×4 (06:05→20:45)
[2017-06-20] MEDS: PANTOPRAZOLE 40 MG IV IVPush SCH ×2 (07:28→09:37)
[2017-06-20] MEDS: MULTIVITAMIN LIQUID PO SCH (08:00)
[2017-06-20] MEDS: FOLIC ACID 1 MG TABLET PO SCH (08:00)
[2017-06-20] MEDS: CHLORDIAZEPOXIDE 25 MG CAPSULE PO SCH (08:00)
[2017-06-20] MEDS: TRAZODONE 150MG TABLET PO SCH (08:00)
[2017-06-20] MEDS: LACTOBACILLUS CHEW TABLET PO SCH ×3 (08:00→20:45)
[2017-06-20] MEDS: SENNA/DOCUSATE TABLET PO SCH (08:00)
[2017-06-20] MEDS: TEMPLATE NON-FORMULARY MED. (Escitalopram Oxalate** 20 MG) HOMEMEDPO SCH (09:00)
[2017-06-20] MEDS: OXYcodone 5 MG/5 ML ORAL.SOL UDC PO PRN ×2 (11:13→17:06)
[2017-06-20 16:26] VITALS: BP 93/62
[2017-06-20 18:41] VITALS: BP 93/65
[2017-06-20] MEDS: LATANOPROST OPHTH 0.005%, 2.5ML EACHEYE SCH (20:45)
[2017-06-21] MEDS: HEPARIN 5,000 UNITS/ML, 1ML SQ SCH ×3 (00:25→17:29)
[2017-06-21] MEDS: OXYcodone 5 MG/5 ML ORAL.SOL UDC PO PRN ×3 (00:29→17:29)
[2017-06-21 02:00] VITALS: BP 108/71
[2017-06-21 05:39] LABS: ASPARTATE AMINO TRANSFERASE 266 U/L (15-37); BLOOD UREA NITROGEN 31 mg/dL (7-18)
[2017-06-21 06:33] LABS: HEMATOCRIT 32.3 % (34.6-47.8); HEMOGLOBIN 10.3 g/dL (11.7-16.4); WHITE BLOOD COUNT 16.1 x10^3/uL (3.4-10)
[2017-06-21 08:16] VITALS: BP 111/76
[2017-06-21] MEDS: SENNA/DOCUSATE TABLET PO SCH (08:31)
[2017-06-21] MEDS: TEMPLATE NON-FORMULARY MED. (Escitalopram Oxalate** 20 MG) HOMEMEDPO SCH (09:00)
[2017-06-21] MEDS: SUCRALFATE 1 GM TABLET PO SCH ×4 (09:58→21:17)
[2017-06-21] MEDS: FOLIC ACID 1 MG TABLET PO SCH (09:58)
[2017-06-21] MEDS: MULTIVITAMIN LIQUID PO SCH (09:59)
[2017-06-21] MEDS: HYDROCORTISONE 100 MG INJ. IVPush SCH ×2 (09:59→21:17)
[2017-06-21] MEDS: PANTOPRAZOLE 40 MG IV IVPush SCH (09:59)
[2017-06-21] MEDS: LACTOBACILLUS CHEW TABLET PO SCH ×3 (09:59→21:17)
[2017-06-21] MEDS: TRAZODONE 150MG TABLET PO SCH (10:00)
[2017-06-21 13:27] VITALS: BP 117/78
[2017-06-21 19:12] VITALS: BP 110/72
[2017-06-21] MEDS: LATANOPROST OPHTH 0.005%, 2.5ML EACHEYE SCH (21:16)
[2017-06-22 00:17] VITALS: BP 108/69
[2017-06-22] MEDS: HEPARIN 5,000 UNITS/ML, 1ML SQ SCH ×3 (00:37→16:30)
[2017-06-22 05:31] LABS: BLOOD UREA NITROGEN 28 mg/dL (7-18)
[2017-06-22 05:36] LABS: ASPARTATE AMINO TRANSFERASE 267 U/L (15-37)
[2017-06-22 06:42] LABS: HEMATOCRIT 30.4 % (34.6-47.8); HEMOGLOBIN 9.9 g/dL (11.7-16.4); WHITE BLOOD COUNT 15.5 x10^3/uL (3.4-10)
[2017-06-22 06:43] LABS: DIFF TOTAL CELLS COUNTED 100 CELL DIFF
[2017-06-22 06:44] LABS: VERIFY COUNTS? YES
[2017-06-22 06:45] LABS: ANISOCYTOSIS 2+; LARGE PLATELETS 1+; POLYCHROMASIA 1+; TARGET CELLS 1+
[2017-06-22 06:46] LABS: GIANT PLATELETS 1+; OVALOCYTES 1+
[2017-06-22 08:14] VITALS: BP 96/65
[2017-06-22] MEDS: TEMPLATE NON-FORMULARY MED. (Escitalopram Oxalate** 20 MG) HOMEMEDPO SCH (09:00)
[2017-06-22] MEDS: SENNA/DOCUSATE TABLET PO SCH (09:00)
[2017-06-22] MEDS: HYDROCORTISONE 100 MG INJ. IVPush SCH ×2 (09:11→23:51)
[2017-06-22] MEDS: LACTOBACILLUS CHEW TABLET PO SCH ×3 (09:11→23:53)
[2017-06-22] MEDS: PANTOPRAZOLE 40 MG IV IVPush SCH (09:11)
[2017-06-22] MEDS: SUCRALFATE 1 GM TABLET PO SCH ×4 (09:11→23:53)
[2017-06-22] MEDS: FOLIC ACID 1 MG TABLET PO SCH (09:11)
[2017-06-22] MEDS: MULTIVITAMIN LIQUID PO SCH (09:12)
[2017-06-22 16:05] VITALS: BP 100/72
[2017-06-22 19:46] VITALS: BP 108/78
[2017-06-22] MEDS: LATANOPROST OPHTH 0.005%, 2.5ML EACHEYE SCH (23:50)
[2017-06-22] MEDS: TRAZODONE 150MG TABLET PO SCH (23:53)
[2017-06-23] MEDS: HEPARIN 5,000 UNITS/ML, 1ML SQ SCH ×3 (00:01→16:40)
[2017-06-23 02:07] VITALS: BP 97/65
[2017-06-23 06:17] LABS: ASPARTATE AMINO TRANSFERASE 260 U/L (15-37); BLOOD UREA NITROGEN 26 mg/dL (7-18)
[2017-06-23 06:28] LABS: HEMATOCRIT 29.8 % (34.6-47.8); HEMOGLOBIN 9.5 g/dL (11.7-16.4); WHITE BLOOD COUNT 14.9 x10^3/uL (3.4-10)
[2017-06-23 07:59] VITALS: BP 99/72
[2017-06-23] MEDS: TEMPLATE NON-FORMULARY MED. (Escitalopram Oxalate** 20 MG) HOMEMEDPO SCH (09:00)
[2017-06-23] MEDS: SENNA/DOCUSATE TABLET PO SCH (09:00)
[2017-06-23] MEDS: SUCRALFATE 1 GM TABLET PO SCH ×4 (09:07→19:45)
[2017-06-23] MEDS: FOLIC ACID 1 MG TABLET PO SCH (09:08)
[2017-06-23] MEDS: HYDROCORTISONE 100 MG INJ. IVPush SCH (09:08)
[2017-06-23] MEDS: LACTOBACILLUS CHEW TABLET PO SCH ×3 (09:08→19:45)
[2017-06-23] MEDS: MULTIVITAMIN LIQUID PO SCH (09:08)
[2017-06-23] MEDS: PANTOPRAZOLE 40 MG IV IVPush SCH (09:08)
[2017-06-23 13:52] VITALS: BP 102/71
[2017-06-23] MEDS: HYDROCORTISONE 10 MG TABLET PO SCH (18:10)
[2017-06-23 19:39] VITALS: BP 92/51
[2017-06-23] MEDS: LATANOPROST OPHTH 0.005%, 2.5ML EACHEYE SCH (19:45)
[2017-06-23] MEDS: TRAZODONE 150MG TABLET PO SCH (19:45)
[2017-06-24 01:12] VITALS: BP 106/74
[2017-06-24] MEDS: HEPARIN 5,000 UNITS/ML, 1ML SQ SCH ×4 (01:17→23:51)
[2017-06-24 05:41] LABS: BLOOD UREA NITROGEN 22 mg/dL (7-18); HEMATOCRIT 28.7 % (34.6-47.8); HEMOGLOBIN 9.2 g/dL (11.7-16.4); WHITE BLOOD COUNT 17.8 x10^3/uL (3.4-10)
[2017-06-24 07:30] VITALS: BP 102/71
[2017-06-24] MEDS ORDERED: ALBUMIN HUMAN 25% 100 ML IV ONE (08:30)
[2017-06-24] MEDS: SENNA/DOCUSATE TABLET PO SCH (08:41)
[2017-06-24] MEDS: TEMPLATE NON-FORMULARY MED. (Escitalopram Oxalate** 20 MG) HOMEMEDPO SCH (08:42)
[2017-06-24] MEDS: LACTOBACILLUS CHEW TABLET PO SCH ×3 (08:44→21:19)
[2017-06-24] MEDS: SUCRALFATE 1 GM TABLET PO SCH ×4 (08:44→21:18)
[2017-06-24] MEDS: HYDROCORTISONE 10 MG TABLET PO SCH ×3 (08:45→16:21)
[2017-06-24] MEDS: FOLIC ACID 1 MG TABLET PO SCH (08:46)
[2017-06-24] MEDS: MULTIVITAMIN LIQUID PO SCH (08:46)
[2017-06-24] MEDS ORDERED: FUROSEMIDE 40 MG/4 ML IV ONE (10:30)
[2017-06-24] MEDS: OXYcodone 5 MG/5 ML ORAL.SOL UDC PO PRN ×2 (11:07→16:07)
[2017-06-24 12:32] VITALS: BP 127/85
[2017-06-24 20:00] VITALS: BP 115/79
[2017-06-24] MEDS: TRAZODONE 150MG TABLET PO SCH (21:18)
[2017-06-24] MEDS: LATANOPROST OPHTH 0.005%, 2.5ML EACHEYE SCH (21:19)
[2017-06-25] MEDS: SENNA/DOCUSATE TABLET PO SCH (09:00)
[2017-06-25] MEDS: TEMPLATE NON-FORMULARY MED. (Escitalopram Oxalate** 20 MG) HOMEMEDPO SCH (09:00)
[2017-06-25 09:25] VITALS: BP 109/71
[2017-06-25] MEDS: SUCRALFATE 1 GM TABLET PO SCH ×4 (09:37→22:53)
[2017-06-25] MEDS: LACTOBACILLUS CHEW TABLET PO SCH ×3 (09:37→22:53)
[2017-06-25] MEDS: HYDROCORTISONE 10 MG TABLET PO SCH ×3 (09:37→18:24)
[2017-06-25] MEDS: MULTIVITAMIN LIQUID PO SCH (09:37)
[2017-06-25] MEDS: FOLIC ACID 1 MG TABLET PO SCH (09:38)
[2017-06-25] MEDS: HEPARIN 5,000 UNITS/ML, 1ML SQ SCH ×2 (09:38→18:23)
[2017-06-25 14:00] VITALS: BP 109/71
[2017-06-25 14:23] LABS: BLOOD UREA NITROGEN 19 mg/dL (7-18)
[2017-06-25 14:36] LABS: DIFF TOTAL CELLS COUNTED 100 CELL DIFF; HEMATOCRIT 29.1 % (34.6-47.8); HEMOGLOBIN 9.2 g/dL (11.7-16.4); WHITE BLOOD COUNT 16.1 x10^3/uL (3.4-10)
[2017-06-25 15:00] LABS: ANISOCYTOSIS 2+; VERIFY COUNTS? YES
[2017-06-25 15:01] LABS: HYPOCHROMIA 1+; LARGE PLATELETS 1+; OVALOCYTES 1+; POLYCHROMASIA 1+; TARGET CELLS 1+
[2017-06-25] MEDS ORDERED: POTASSIUM CHLORIDE 20 MEQ TAB.ER.PRT PO ONE (15:30)
[2017-06-25] MEDS: ALBUMIN HUMAN 25% 100 ML IV SCH ×2 (18:22→22:52)
[2017-06-25] MEDS ORDERED: LIDOCAINE GEL 2%, 5ML TP ONE (18:30)
[2017-06-25 19:40] VITALS: BP 108/73
[2017-06-25] MEDS: TRAZODONE 150MG TABLET PO SCH (22:53)
[2017-06-25] MEDS: FUROSEMIDE 20 MG/2 ML IV SCH (22:53)
[2017-06-25] MEDS: LATANOPROST OPHTH 0.005%, 2.5ML EACHEYE SCH (22:53)
[2017-06-26 01:03] VITALS: BP 101/70
[2017-06-26] MEDS: HEPARIN 5,000 UNITS/ML, 1ML SQ SCH ×3 (03:05→21:11)
[2017-06-26] MEDS: FUROSEMIDE 20 MG/2 ML IV SCH ×4 (03:05→23:05)
[2017-06-26] MEDS: ALBUMIN HUMAN 25% 100 ML IV SCH ×4 (04:52→21:10)
[2017-06-26 05:30] LABS: ASPARTATE AMINO TRANSFERASE 219 U/L (15-37); BLOOD UREA NITROGEN 16 mg/dL (7-18)
[2017-06-26 07:04] LABS: HEMATOCRIT 30.7 % (34.6-47.8); HEMOGLOBIN 9.9 g/dL (11.7-16.4); WHITE BLOOD COUNT 12.3 x10^3/uL (3.4-10)
[2017-06-26 07:05] LABS: DIFF TOTAL CELLS COUNTED 100 CELL DIFF
[2017-06-26 07:10] VITALS: BP 94/63
[2017-06-26 07:20] LABS: ANISOCYTOSIS 2+
[2017-06-26 07:21] LABS: VERIFY COUNTS? YES
[2017-06-26] MEDS: TEMPLATE NON-FORMULARY MED. (Escitalopram Oxalate** 20 MG) HOMEMEDPO SCH (09:00)
[2017-06-26] MEDS: SENNA/DOCUSATE TABLET PO SCH (09:00)
[2017-06-26] MEDS: HYDROCORTISONE 10 MG TABLET PO SCH ×3 (10:08→16:23)
[2017-06-26] MEDS: MULTIVITAMIN LIQUID PO SCH (10:08)
[2017-06-26] MEDS: SUCRALFATE 1 GM TABLET PO SCH ×4 (10:08→21:14)
[2017-06-26] MEDS: FOLIC ACID 1 MG TABLET PO SCH (10:08)
[2017-06-26] MEDS: LACTOBACILLUS CHEW TABLET PO SCH ×3 (10:08→21:14)
[2017-06-26 12:08] VITALS: BP 105/73
[2017-06-26] MEDS ORDERED: POTASSIUM CHLORIDE 20 MEQ PACKET PO ONE (13:00)
[2017-06-26 18:37] VITALS: BP 102/70
[2017-06-26] MEDS: POTASSIUM CHLORIDE 20 MEQ TAB.ER.PRT PO SCH (21:13)
[2017-06-26] MEDS: LATANOPROST OPHTH 0.005%, 2.5ML EACHEYE SCH (21:14)
[2017-06-26] MEDS: TRAZODONE 150MG TABLET PO SCH (21:14)
[2017-06-26] MEDS: ONDANSETRON 2MG/ML, 2ML IVPush PRN (21:33)
[2017-06-27 01:02] VITALS: BP 100/67
[2017-06-27] MEDS: ALBUMIN HUMAN 25% 100 ML IV SCH ×4 (04:44→23:56)
[2017-06-27] MEDS: FUROSEMIDE 20 MG/2 ML IV SCH ×4 (04:44→23:56)
[2017-06-27] MEDS: HEPARIN 5,000 UNITS/ML, 1ML SQ SCH ×3 (04:45→21:28)
[2017-06-27] MEDS: ONDANSETRON 2MG/ML, 2ML IVPush PRN ×2 (04:53→21:28)
[2017-06-27 05:28] LABS: ASPARTATE AMINO TRANSFERASE 183 U/L (15-37); BLOOD UREA NITROGEN 16 mg/dL (7-18)
[2017-06-27 05:58] LABS: HEMATOCRIT 25.8 % (34.6-47.8); HEMOGLOBIN 8.1 g/dL (11.7-16.4); WHITE BLOOD COUNT 14.5 x10^3/uL (3.4-10)
[2017-06-27 06:01] LABS: ANISOCYTOSIS 2+; OVALOCYTES 1+; POLYCHROMASIA 1+; TARGET CELLS 1+
[2017-06-27 06:02] LABS: LARGE PLATELETS 1+
[2017-06-27] MEDS: SUCRALFATE 1 GM TABLET PO SCH ×4 (07:00→21:29)
[2017-06-27 07:36] VITALS: BP 100/69
[2017-06-27] MEDS: POTASSIUM CHLORIDE 20 MEQ TAB.ER.PRT PO SCH ×2 (08:00→17:34)
[2017-06-27] MEDS ORDERED: POTASSIUM CHLORIDE 20 MEQ TAB.ER.PRT PO ONE (09:00)
[2017-06-27] MEDS: TEMPLATE NON-FORMULARY MED. (Escitalopram Oxalate** 20 MG) HOMEMEDPO SCH (09:00)
[2017-06-27] MEDS: SENNA/DOCUSATE TABLET PO SCH (09:00)
[2017-06-27] MEDS ORDERED: MAGNESIUM SULFATE PMX 2GM/50ML 50 ML IV ONE (09:00)
[2017-06-27] MEDS: MULTIVITAMIN LIQUID PO SCH (09:54)
[2017-06-27] MEDS: LACTOBACILLUS CHEW TABLET PO SCH ×3 (09:55→21:50)
[2017-06-27] MEDS: FOLIC ACID 1 MG TABLET PO SCH (09:55)
[2017-06-27] MEDS: HYDROCORTISONE 10 MG TABLET PO SCH ×3 (09:55→17:33)
[2017-06-27 12:59] VITALS: BP 94/65
[2017-06-27] MEDS: OXYcodone 5 MG/5 ML ORAL.SOL UDC PO PRN (17:34)
[2017-06-27 19:08] LABS: BLOOD UREA NITROGEN 17 mg/dL (7-18)
[2017-06-27] MEDS ORDERED: POTASSIUM CHLORIDE 20 MEQ PACKET NG ONE (21:00)
[2017-06-27 21:06] VITALS: BP 108/74
[2017-06-27] MEDS: LATANOPROST OPHTH 0.005%, 2.5ML EACHEYE SCH (21:28)
[2017-06-27] MEDS: TRAZODONE 150MG TABLET PO SCH (21:29)
[2017-06-28 01:03] VITALS: BP 130/72
[2017-06-28] MEDS: ONDANSETRON 2MG/ML, 2ML IVPush PRN (03:53)
[2017-06-28] MEDS: ALBUMIN HUMAN 25% 100 ML IV SCH ×4 (05:15→23:25)
[2017-06-28] MEDS: FUROSEMIDE 20 MG/2 ML IV SCH ×4 (05:15→23:25)
[2017-06-28] MEDS: HEPARIN 5,000 UNITS/ML, 1ML SQ SCH ×3 (05:16→20:52)
[2017-06-28 05:43] LABS: BLOOD UREA NITROGEN 18 mg/dL (7-18)
[2017-06-28 05:47] LABS: HEMATOCRIT 24.7 % (34.6-47.8); HEMOGLOBIN 7.9 g/dL (11.7-16.4); WHITE BLOOD COUNT 15.6 x10^3/uL (3.4-10)
[2017-06-28 07:33] VITALS: BP 112/78
[2017-06-28] MEDS: SUCRALFATE 1 GM TABLET PO SCH ×4 (07:57→20:52)
[2017-06-28] MEDS: HYDROCORTISONE 10 MG TABLET PO SCH ×3 (08:00→20:52)
[2017-06-28] MEDS: POTASSIUM CHLORIDE 20 MEQ TAB.ER.PRT PO SCH ×2 (08:18→18:19)
[2017-06-28] MEDS: TEMPLATE NON-FORMULARY MED. (Escitalopram Oxalate** 20 MG) HOMEMEDPO SCH (09:00)
[2017-06-28] MEDS: LACTOBACILLUS CHEW TABLET PO SCH ×3 (09:25→20:53)
[2017-06-28] MEDS: MULTIVITAMIN LIQUID PO SCH (09:25)
[2017-06-28] MEDS: FOLIC ACID 1 MG TABLET PO SCH (09:25)
[2017-06-28] MEDS: SENNA/DOCUSATE TABLET PO SCH (09:25)
[2017-06-28 12:45] VITALS: BP 96/68
[2017-06-28] MEDS ORDERED: POTASSIUM CHLORIDE 10 MEQ TABLET.ER ONE (18:14)
[2017-06-28 19:08] VITALS: BP 99/70
[2017-06-28] MEDS: LATANOPROST OPHTH 0.005%, 2.5ML EACHEYE SCH (20:52)
[2017-06-28] MEDS: TRAZODONE 150MG TABLET PO SCH (20:53)
[2017-06-29 02:00] VITALS: BP 99/69
[2017-06-29] MEDS: ALBUMIN HUMAN 25% 100 ML IV SCH ×4 (05:16→23:05)
[2017-06-29] MEDS: HEPARIN 5,000 UNITS/ML, 1ML SQ SCH ×3 (05:16→22:24)
[2017-06-29] MEDS: FUROSEMIDE 20 MG/2 ML IV SCH ×3 (05:16→16:16)
[2017-06-29 05:50] LABS: BLOOD UREA NITROGEN 20 mg/dL (7-18)
[2017-06-29 07:27] VITALS: BP 103/70
[2017-06-29] MEDS: FOLIC ACID 1 MG TABLET PO SCH (08:00)
[2017-06-29] MEDS: POTASSIUM CHLORIDE 20 MEQ TAB.ER.PRT PO SCH ×2 (08:00→21:00)
[2017-06-29] MEDS: LACTOBACILLUS CHEW TABLET PO SCH ×3 (08:00→22:24)
[2017-06-29] MEDS: TEMPLATE NON-FORMULARY MED. (Escitalopram Oxalate** 20 MG) HOMEMEDPO SCH (08:01)
[2017-06-29] MEDS: HYDROCORTISONE 10 MG TABLET PO SCH ×3 (08:01→22:24)
[2017-06-29] MEDS: SUCRALFATE 1 GM TABLET PO SCH ×4 (08:01→22:24)
[2017-06-29] MEDS: SENNA/DOCUSATE TABLET PO SCH ×2 (08:09→09:28)
[2017-06-29] MEDS: MULTIVITAMIN LIQUID PO SCH (09:28)
[2017-06-29] MEDS: CITALOPRAM 20 MG TABLET PO SCH (13:21)
[2017-06-29 15:53] VITALS: BP 109/74
[2017-06-29 19:55] VITALS: BP 109/77
[2017-06-29] MEDS: LACTULOSE 10 GM/15 ML UDC PO SCH (22:23)
[2017-06-29] MEDS: LATANOPROST OPHTH 0.005%, 2.5ML EACHEYE SCH (22:24)
[2017-06-29] MEDS: TRAZODONE 150MG TABLET PO SCH (22:24)
[2017-06-30] VITALS (11 sets, daily range): BP systolic 90–125; BP diastolic 61–83
[2017-06-30] MEDS: HEPARIN 5,000 UNITS/ML, 1ML SQ SCH (05:00)
[2017-06-30] MEDS: ALBUMIN HUMAN 25% 100 ML IV SCH ×3 (05:31→17:00)
[2017-06-30 05:55] LABS: BLOOD UREA NITROGEN 21 mg/dL (7-18)
[2017-06-30 05:57] LABS: HEMOGLOBIN 7.2 g/dL (11.7-16.4); WHITE BLOOD COUNT 18.2 x10^3/uL (3.4-10)
[2017-06-30 06:21] LABS: HEMATOCRIT 22.7 % (34.6-47.8)
[2017-06-30 06:27] LABS: ANISOCYTOSIS 2+; POLYCHROMASIA 1+; TARGET CELLS 1+
[2017-06-30 06:28] LABS: STOMATOCYTES 1+
[2017-06-30 06:29] LABS: LARGE PLATELETS 1+
[2017-06-30] MEDS ORDERED: SODIUM CHLORIDE 0.9%, 500ML IVBOLUS ONE (08:00)
[2017-06-30] MEDS ORDERED: MAGNESIUM SULFATE PMX 2GM/50ML 50 ML IV ONE (08:00)
[2017-06-30] MEDS ORDERED: POTASSIUM CHLORIDE 20 MEQ PACKET PO SCH (08:00)
[2017-06-30] MEDS ORDERED: POTASSIUM CHLORIDE 20 MEQ TAB.ER.PRT PO ONE (08:00)
[2017-06-30] MEDS ORDERED: CEFTRIAXONE PMX 1GM/50ML 50 ML IV SCH (08:30)
[2017-06-30] MEDS: SENNA/DOCUSATE TABLET PO SCH (09:00)
[2017-06-30] MEDS ORDERED: FUROSEMIDE 20 MG/2 ML IV SCH (09:00)
[2017-06-30] MEDS: MULTIVITAMIN LIQUID PO SCH (09:00)
[2017-06-30] MEDS ORDERED: DILTIAZEM 5 MG/ML, 5ML IVPush ONE (09:00)
[2017-06-30] MEDS: DILTIAZEM 125 MG in SODIUM CHLORIDE 0.9% 100 ML IV PRN (09:10)
[2017-06-30] MEDS: SUCRALFATE 1 GM TABLET PO SCH ×4 (11:00→20:51)
[2017-06-30] MEDS: HYDROCORTISONE 10 MG TABLET PO SCH ×3 (12:00→17:00)
[2017-06-30] MEDS: FOLIC ACID 1 MG TABLET PO SCH (13:04)
[2017-06-30] MEDS: DOXYCYCLINE 100MG TABLET PO SCH ×2 (13:04→20:52)
[2017-06-30] MEDS: LACTOBACILLUS CHEW TABLET PO SCH ×3 (13:04→20:52)
[2017-06-30] MEDS: CITALOPRAM 20 MG TABLET PO SCH (13:05)
[2017-06-30] MEDS: LACTULOSE 10 GM/15 ML UDC PO SCH ×2 (13:05→20:52)
[2017-06-30] MEDS: AMPICILLIN/SULBACTAM 3 GM in SODIUM CHLORIDE 0.9% 100 ML IV SCH ×3 (13:06→23:13)
[2017-06-30] MEDS: ONDANSETRON 2MG/ML, 2ML IVPush PRN (13:24)
[2017-06-30] MEDS ORDERED: FUROSEMIDE 20 MG/2 ML ONE (13:58)
[2017-06-30] MEDS ORDERED: FUROSEMIDE 20 MG/2 ML IV ONE (14:00)
[2017-06-30 14:21] LABS: ABG COLLECTION SITE LEFT BRACHIAL
[2017-06-30 14:32] LABS: ASPARTATE AMINO TRANSFERASE 117 U/L (15-37); BLOOD UREA NITROGEN 24 mg/dL (7-18)
[2017-06-30] MEDS ORDERED: OMNIPAQUE 350 MG/ML, 100ML BOTTLE ONE (15:34)
[2017-06-30] MEDS: AcetaZOLAMIDE INJ 500 MG IVPush SCH (15:53)
[2017-06-30] MEDS: OXYcodone 5 MG/5 ML ORAL.SOL UDC PO PRN (16:34)
[2017-06-30] MEDS: LATANOPROST OPHTH 0.005%, 2.5ML EACHEYE SCH (20:50)
[2017-06-30] MEDS: TRAZODONE 50MG TABLET PO SCH (20:51)
[2017-06-30] MEDS: RIFAXIMIN 550 MG TABLET PO SCH (20:52)
[2017-07-01] MEDS: ALBUMIN HUMAN 25% 100 ML IV SCH ×4 (00:56→22:37)
[2017-07-01] MEDS: OXYcodone 5 MG/5 ML ORAL.SOL UDC PO PRN (01:17)
[2017-07-01 01:23] VITALS: BP 115/86
[2017-07-01] MEDS: AMPICILLIN/SULBACTAM 3 GM in SODIUM CHLORIDE 0.9% 100 ML IV SCH (05:40)
[2017-07-01 06:07] LABS: BLOOD UREA NITROGEN 28 mg/dL (7-18)
[2017-07-01 06:08] LABS: HEMATOCRIT 30.1 % (34.6-47.8); HEMOGLOBIN 9.7 g/dL (11.7-16.4); WHITE BLOOD COUNT 17.6 x10^3/uL (3.4-10)
[2017-07-01 07:59] VITALS: BP 109/74
[2017-07-01] MEDS ORDERED: POTASSIUM CHLORIDE 10% 40 MEQ/30 ML UDC PO ONE (08:30)
[2017-07-01] MEDS: METOPROLOL TARTRATE 25 MG TABLET PO SCH ×2 (08:30→15:27)
[2017-07-01] MEDS ORDERED: POTASSIUM CHLORIDE 20 MEQ PACKET PO ONE (09:00)
[2017-07-01] MEDS ORDERED: DILTIAZEM 120 MG CAP.ER.24H PO SCH (09:00)
[2017-07-01] MEDS: SENNA/DOCUSATE TABLET PO SCH (09:00)
[2017-07-01 09:09] LABS: ABG COLLECTION SITE RIGHT RADIAL; COLLATERAL CIRCULATION TESTING NORMAL
[2017-07-01] MEDS: CITALOPRAM 20 MG TABLET PO SCH (10:31)
[2017-07-01] MEDS: RIFAXIMIN 550 MG TABLET PO SCH ×2 (10:31→22:17)
[2017-07-01] MEDS: SUCRALFATE 1 GM TABLET PO SCH ×4 (10:31→22:16)
[2017-07-01] MEDS: FOLIC ACID 1 MG TABLET PO SCH (10:31)
[2017-07-01] MEDS: LACTOBACILLUS CHEW TABLET PO SCH ×3 (10:32→22:16)
[2017-07-01] MEDS: HYDROCORTISONE 10 MG TABLET PO SCH ×3 (10:32→15:27)
[2017-07-01] MEDS: AcetaZOLAMIDE INJ 500 MG IVPush SCH (10:32)
[2017-07-01] MEDS: LACTULOSE 10 GM/15 ML UDC PO SCH ×2 (10:33→22:16)
[2017-07-01] MEDS: MULTIVITAMIN LIQUID PO SCH (10:33)
[2017-07-01] MEDS: ONDANSETRON 2MG/ML, 2ML IVPush PRN ×2 (10:53→22:16)
[2017-07-01 13:54] VITALS: BP 125/82
[2017-07-01 14:08] LABS: BLOOD UREA NITROGEN 29 mg/dL (7-18)
[2017-07-01] MEDS: MORPHINE SULFATE 4 MG/ML, 1ML IVPush PRN (16:46)
[2017-07-01] MEDS ORDERED: DILTIAZEM 5 MG/ML, 5ML IVPush ONE (17:30)
[2017-07-01] MEDS ORDERED: DILTIAZEM 125 MG in SODIUM CHLORIDE 0.9% 100 ML IV PRN (17:30)
[2017-07-01] MEDS: DILTIAZEM 125 MG in SODIUM CHLORIDE 0.9% 100 ML IV PRN (18:09)
[2017-07-01] MEDS ORDERED: HALOPERIDOL 5 MG/ML IV PRN (18:30)
[2017-07-01 19:00] VITALS: BP 120/88
[2017-07-01] MEDS: LATANOPROST OPHTH 0.005%, 2.5ML EACHEYE SCH (22:17)
[2017-07-01] MEDS: TRAZODONE 50MG TABLET PO SCH (22:17)
[2017-07-02] MEDS ORDERED: PANTOPRAZOLE 80 MG in SODIUM CHLORIDE 0.9% 50 ML IV ONE
[2017-07-02 00:29] LABS: HEMATOCRIT 28.6 % (34.6-47.8); HEMOGLOBIN 9.2 g/dL (11.7-16.4); WHITE BLOOD COUNT 15.9 x10^3/uL (3.4-10)
[2017-07-02 00:39] LABS: BLOOD UREA NITROGEN 32 mg/dL (7-18)
[2017-07-02 00:43] LABS: ASPARTATE AMINO TRANSFERASE 73 U/L (15-37)
[2017-07-02] MEDS: PANTOPRAZOLE 80 MG in SODIUM CHLORIDE 0.9% 100 ML IV SCH ×3 (01:05→20:25)
[2017-07-02] MEDS ORDERED: POTASSIUM CHLORIDE 40 MEQ in SODIUM CHLORIDE 0.9% 100 ML IV ONE ×3 (02:00→16:00)
[2017-07-02 02:42] VITALS: BP 101/70
[2017-07-02] MEDS: ALBUMIN HUMAN 25% 100 ML IV SCH (05:31)
[2017-07-02 05:51] LABS: HEMATOCRIT 28.7 % (34.6-47.8); HEMOGLOBIN 9.4 g/dL (11.7-16.4); WHITE BLOOD COUNT 16.1 x10^3/uL (3.4-10)
[2017-07-02 05:53] LABS: BLOOD UREA NITROGEN 33 mg/dL (7-18)
[2017-07-02 05:57] LABS: ASPARTATE AMINO TRANSFERASE 69 U/L (15-37)
[2017-07-02] MEDS: METOPROLOL TARTRATE 25 MG TABLET PO SCH ×2 (06:55→12:47)
[2017-07-02] MEDS ORDERED: METOPROLOL 1 MG/ML, 5ML IVPush PRN (07:00)
[2017-07-02] MEDS: SUCRALFATE 1 GM TABLET PO SCH ×4 (07:00→20:27)
[2017-07-02] MEDS: HYDROCORTISONE 10 MG TABLET PO SCH ×3 (08:00→12:47)
[2017-07-02] MEDS: OCTREOTIDE 500 MCG in SODIUM CHLORIDE 0.9% 249 ML IV SCH ×2 (08:26→17:15)
[2017-07-02 08:45] VITALS: BP 125/83
[2017-07-02] MEDS: FOLIC ACID 1 MG TABLET PO SCH (09:00)
[2017-07-02] MEDS: LACTOBACILLUS CHEW TABLET PO SCH ×3 (09:00→20:27)
[2017-07-02] MEDS: SENNA/DOCUSATE TABLET PO SCH (09:00)
[2017-07-02] MEDS: MULTIVITAMIN LIQUID PO SCH (09:00)
[2017-07-02] MEDS: RIFAXIMIN 550 MG TABLET PO SCH ×2 (09:00→20:28)
[2017-07-02] MEDS: LACTULOSE 10 GM/15 ML UDC PO SCH (09:00)
[2017-07-02] MEDS: CITALOPRAM 20 MG TABLET PO SCH (09:00)
[2017-07-02] MEDS ORDERED: CATHFLO-ALTEPLASE 2 MG/2 ML CATHFLUSH ONE (11:00)
[2017-07-02] MEDS ORDERED: POTASSIUM CHLORIDE PMX 100 ML IV ONE (11:00)
[2017-07-02] MEDS: SODIUM CHLORIDE 0.9% 1,000 ML IV SCH (11:17)
[2017-07-02] MEDS ORDERED: POTASSIUM CHLORIDE IV SCH (11:30)
[2017-07-02] MEDS ORDERED: SODIUM CHLORIDE 0.9% IV SCH (11:30)
[2017-07-02] MEDS ORDERED: POTASSIUM CHLORIDE 20 MEQ, MAGNESIUM SULFATE 1 GM, FOLIC ACID 1 MG, THIAMINE 100 MG, MV... IV SCH (15:00)
[2017-07-02 16:35] VITALS: BP 123/80
[2017-07-02] MEDS: LACTULOSE 3.3 GM/5 ML ORAL.SOL RC SCH (17:46)
[2017-07-02 19:28] VITALS: BP 121/81
[2017-07-02] MEDS: TRAZODONE 50MG TABLET PO SCH (20:27)
[2017-07-02] MEDS: LATANOPROST OPHTH 0.005%, 2.5ML EACHEYE SCH (20:27)
[2017-07-02 22:05] LABS: HEMATOCRIT 27.5 % (34.6-47.8); HEMOGLOBIN 8.9 g/dL (11.7-16.4)
[2017-07-03 01:54] VITALS: BP 143/88
[2017-07-03 04:07] LABS: BLOOD UREA NITROGEN 30 mg/dL (7-18)
[2017-07-03 04:31] LABS: HEMATOCRIT 27.6 % (34.6-47.8); HEMOGLOBIN 8.8 g/dL (11.7-16.4); WHITE BLOOD COUNT 14.3 x10^3/uL (3.4-10)
[2017-07-03] MEDS: OCTREOTIDE 500 MCG in SODIUM CHLORIDE 0.9% 249 ML IV SCH ×3 (04:48→14:22)
[2017-07-03] MEDS: PANTOPRAZOLE 80 MG in SODIUM CHLORIDE 0.9% 100 ML IV SCH ×2 (05:49→16:55)
[2017-07-03] MEDS: SODIUM CHLORIDE 0.9% 1,000 ML IV SCH (07:00)
[2017-07-03] MEDS: SUCRALFATE 1 GM TABLET PO SCH ×4 (07:00→21:06)
[2017-07-03] MEDS: METOPROLOL TARTRATE 25 MG TABLET PO SCH ×2 (07:29→15:13)
[2017-07-03] MEDS ORDERED: POTASSIUM CHLORIDE 20 MEQ in SODIUM CHLORIDE 0.45% 1,000 ML IV SCH ×2 (07:30→09:00)
[2017-07-03] MEDS: HYDROCORTISONE 10 MG TABLET PO SCH ×3 (08:00→15:13)
[2017-07-03 08:27] LABS: ABG COLLECTION SITE RIGHT RADIAL; COLLATERAL CIRCULATION TESTING NORMAL
[2017-07-03] MEDS: MULTIVITAMIN LIQUID PO SCH (09:00)
[2017-07-03] MEDS: SENNA/DOCUSATE TABLET PO SCH (09:00)
[2017-07-03] MEDS: FOLIC ACID 1 MG TABLET PO SCH (09:00)
[2017-07-03] MEDS: RIFAXIMIN 550 MG TABLET PO SCH ×2 (09:00→21:06)
[2017-07-03] MEDS: LACTOBACILLUS CHEW TABLET PO SCH ×3 (09:00→21:06)
[2017-07-03] MEDS: CITALOPRAM 20 MG TABLET PO SCH (09:02)
[2017-07-03 10:59] VITALS: BP 130/86
[2017-07-03] MEDS: LACTULOSE 3.3 GM/5 ML ORAL.SOL RC SCH ×2 (13:29→14:48)
[2017-07-03 14:01] VITALS: BP 132/88
[2017-07-03 14:42] LABS: BLOOD UREA NITROGEN 28 mg/dL (7-18)
[2017-07-03] MEDS ORDERED: POTASSIUM CHLORIDE 20 MEQ in DEXTROSE 5% 1,000 ML IV SCH (15:00)
[2017-07-03 19:15] LABS: BLOOD UREA NITROGEN 24 mg/dL (7-18)
[2017-07-03] MEDS ORDERED: BISACODYL 10 MG SUPP PR PRN (20:00)
[2017-07-03] MEDS ORDERED: POTASSIUM CHLORIDE 40 MEQ in DEXTROSE 5% 1,000 ML IV SCH (20:00)
[2017-07-03] MEDS ORDERED: BENZOCAINE AEROSOL SPRAY 20%, 60ML TP PRN (20:00)
[2017-07-03 20:20] VITALS: BP 129/83
[2017-07-03] MEDS: LATANOPROST OPHTH 0.005%, 2.5ML EACHEYE SCH (21:06)
[2017-07-03] MEDS: TRAZODONE 50MG TABLET PO SCH (21:06)
[2017-07-04] MEDS: OCTREOTIDE 500 MCG in SODIUM CHLORIDE 0.9% 249 ML IV SCH (00:49)
[2017-07-04 01:09] VITALS: BP 128/87
[2017-07-04] MEDS: MORPHINE SULFATE 4 MG/ML, 1ML IVPush PRN (02:19)
[2017-07-04] MEDS: PANTOPRAZOLE 80 MG in SODIUM CHLORIDE 0.9% 100 ML IV SCH (03:26)
[2017-07-04 05:03] LABS: HEMATOCRIT 26.6 % (34.6-47.8); HEMOGLOBIN 8.7 g/dL (11.7-16.4); WHITE BLOOD COUNT 14.5 x10^3/uL (3.4-10)
[2017-07-04 05:09] LABS: BLOOD UREA NITROGEN 20 mg/dL (7-18)
[2017-07-04] MEDS: METOPROLOL TARTRATE 25 MG TABLET PO SCH (06:04)
[2017-07-04] MEDS: SUCRALFATE 1 GM TABLET PO SCH ×3 (07:00→12:49)
[2017-07-04] MEDS ORDERED: HALOPERIDOL 5 MG/ML IV PRN (07:00)
[2017-07-04] MEDS ORDERED: POTASSIUM CHLORIDE 20 MEQ in SODIUM CHLORIDE 0.45% 1,000 ML IV SCH (07:30)
[2017-07-04] MEDS: HYDROCORTISONE 10 MG TABLET PO SCH ×2 (08:00→10:59)
[2017-07-04 09:00] VITALS: BP 135/84
[2017-07-04] MEDS: FOLIC ACID 1 MG TABLET PO SCH (09:00)
[2017-07-04] MEDS: CITALOPRAM 20 MG TABLET PO SCH (09:00)
[2017-07-04] MEDS: LACTOBACILLUS CHEW TABLET PO SCH ×2 (09:00→12:49)
[2017-07-04] MEDS: MULTIVITAMIN LIQUID PO SCH (09:00)
[2017-07-04] MEDS: SENNA/DOCUSATE TABLET PO SCH (09:00)
[2017-07-04] MEDS: LACTULOSE 3.3 GM/5 ML ORAL.SOL RC SCH (09:00)
[2017-07-04] MEDS: RIFAXIMIN 550 MG TABLET PO SCH (09:00)
[2017-07-04] MEDS ORDERED: PANTOPRAZOLE 40 MG IV IVPush SCH ×2 (11:30→18:00)
[2017-07-04 12:45] LABS: BLOOD UREA NITROGEN 19 mg/dL (7-18)
[2017-07-04] MEDS ORDERED: SUCR1TAB33 PO (13:53)
[2017-07-04] MEDS ORDERED: BENZ57SP TP (13:53)
[2017-07-04 14:00] VITALS: BP 134/69
[2017-07-04] MEDS ORDERED: TRAZODONE 50MG TABLET PO SCH (21:00)
== END 2017-07-04 20:58 | disposition hospice, home (50) | DRG 207 ==
LOC: ED 23:58 → EDIP 23:59 → ED 23:59 → 4WST 06-09 02:32 → CCU 06-11 05:08 → 3NE 06-20 15:15 → 5SO 06-26 12:01 → 3NE 06-28 17:15 → 5SO 06-30 08:45 → CCU 06-30 16:12 → 5SO 06-30 22:45
PROVIDERS: ADMIT Internal Medicine; ATTEND Internal Medicine
PROC: 0BH18EZ Insertion of Endotracheal Airway into Trachea, Via Natural or Artificial Opening Endoscopic (ICD-10-PCS; principal; 2017-06-11)
PROC: 5A1955Z Respiratory Ventilation, Greater than 96 Consecutive Hours (ICD-10-PCS; 2017-06-11)
PROC: 0T9B70Z Drainage of Bladder with Drainage Device, Via Natural or Artificial Opening (ICD-10-PCS; 2017-06-11)
PROC: 02HV33Z Insertion of Infusion Device into Superior Vena Cava, Percutaneous Approach (ICD-10-PCS; 2017-06-11)
PROC: B548ZZA Ultrasonography of Superior Vena Cava, Guidance (ICD-10-PCS; 2017-06-11)
PROC: 30233N1 Transfusion of Nonautologous Red Blood Cells into Peripheral Vein, Percutaneous Approach (ICD-10-PCS; 2017-06-30)
DX: J96.00 Acute respiratory failure, unspecified whether with hypoxia or hypercapnia (principal); G93.41 Metabolic encephalopathy; F10.231 Alcohol dependence with withdrawal delirium; K83.1 Obstruction of bile duct; I67.1 Cerebral aneurysm, nonruptured; I95.9 Hypotension, unspecified; D68.9 Coagulation defect, unspecified; E87.0 Hyperosmolality and hypernatremia; Z99.11 Dependence on respirator [ventilator] status; E87.2 Acidosis; E27.40 Unspecified adrenocortical insufficiency; E87.1 Hypo-osmolality and hyponatremia; N39.0 Urinary tract infection, site not specified; D68.69 Other thrombophilia; K92.2 Gastrointestinal hemorrhage, unspecified; I48.0 Paroxysmal atrial fibrillation; E86.0 Dehydration; I08.3 Combined rheumatic disorders of mitral, aortic and tricuspid valves; K72.90 Hepatic failure, unspecified without coma; K70.10 Alcoholic hepatitis without ascites; K70.30 Alcoholic cirrhosis of liver without ascites; E87.6 Hypokalemia; I10 Essential (primary) hypertension; K29.20 Alcoholic gastritis without bleeding; D64.9 Anemia, unspecified; E87.5 Hyperkalemia; F31.9 Bipolar disorder, unspecified; F43.10 Post-traumatic stress disorder, unspecified; R63.4 Abnormal weight loss; R19.5 Other fecal abnormalities; Y90.0 Blood alcohol level of less than 20 mg/100 ml; Z51.5 Encounter for palliative care; H40.9 Unspecified glaucoma; H54.42 Blindness, left eye, normal vision right eye; K82.8 Other specified diseases of gallbladder; Z82.3 Family history of stroke; Z86.19 Personal history of other infectious and parasitic diseases; Z87.11 Personal history of peptic ulcer disease; Z79.899 Other long term (current) drug therapy
CPT/HCPCS: 36415; 36569; 36600; 70450; 71010; 71275; 74000; 74177; 74181; 74230; 76700; 76937; 77001; 80048; 80053; 80307; 81001; 82040; 82105; 82140; 82248; 82533; 82607; 82746; 82803; 82962; 83010; 83605; 83690; 83735; 84100; 84145; 84439; 84443; 84478; 85014; 85018; 85025; 85045; 85610; 86301; 86850; 86900; 86923; 87040; 87070; 87077; 87081; 87086; 87147; 87186; 87205; 87324; 89055; 93005; 93306; 94002; 94003; 96365; 96366; 96367; 96368; J0295; J0696; J1644; J1940; J2250; J2354; J2405; J2550; J2997; J3360; J3411; J3475; J3480; J3490; J7042; J7070; P9047; Q9967; C1751; C9113; J1120; J1630; J1720; J2060; J7030; J7040; J7050; P9016

== ENCOUNTER 2019-01-22 23:55 | Emergency (ER) | payer MEDICARE ==
[~2019-01-22] VITALS: Ht 160 cm; Wt 54.2 kg
[~2019-01-22 23:55] MED LIST changes: +BENZ57SP TP; +PROZAC; +SUCR1TAB33 PO; +TRAZ-137 PO; -TRAZ100T15 PO
[2019-01-22 23:59] VITALS: BP 154/93
--- NOTE | 2019-01-23 00:06 | NUR ---
PT YELLING AT TECH AND RN. PT POKING TECH IN CHEST. PT UNCOOPERATIVE WITH ASSESSMENT AND QUESTIONS. DID NOT ALLOW REG TO PUT ID BRACELET ON HER. PT ASKED TO CALM DOWN. PT YELLED, "I'M CALM BUT DON'T TOUCH ME, I DON'T HAVE TO ANSWER ANY OF YOUR QUESTIONS". PT TRYING TO CALM PT DOWN UNSUCCESSFULLY.
== END 2019-01-23 00:57 | disposition left against medical advice (07) ==
LOC: ED 01-23 00:50
DX: H57.12 Ocular pain, left eye (principal); F10.220 Alcohol dependence with intoxication, uncomplicated
CPT/HCPCS: 99282

== ENCOUNTER 2019-01-27 01:56 | Emergency (ER) | payer MEDICARE ==
[~2019-01-27] VITALS: Ht 157.5 cm; Wt 51.0 kg
[2019-01-27 01:59] VITALS: BP 152/91
--- NOTE | 2019-01-27 02:38 | NUR ---
PT WAS SEEN EXITING OUT OF THE RADIOLOGY DOORS. THIS RN CAUGHT UP WITH PTS WHO STATES HE ATTEMPTED TO BRING THE PT BACK TO THE ED BUT WAS UNSUCCESSFUL. PT THEN AMBULATED OUT OF THE [place] ENTRANCE. PT HAS ELOPED.
--- NOTE | 2019-01-27 02:45 | NUR ---
PT FOUND HER WAY BACK INTO THE ED SCREAMING PROFANITIES AND THREATENING STAFF. PT REFUSED ARM TO BE BANDAGED. PT CONTINUED TO SCREAM AND THREATEN STAFF. PT ATTEMPTING TO ENTER STAFF COMPUTER AREA. PT ESCORTED OUT OF ED BY SECURITY.
== END 2019-01-27 02:58 | disposition left against medical advice (07) ==
LOC: ED 02:45
DX: S50.02XA Contusion of left elbow, initial encounter (principal); F10.120 Alcohol abuse with intoxication, uncomplicated; I10 Essential (primary) hypertension; F31.9 Bipolar disorder, unspecified; Z90.49 Acquired absence of other specified parts of digestive tract; Z90.710 Acquired absence of both cervix and uterus; W22.8XXA Striking against or struck by other objects, initial encounter; Y93.89 Activity, other specified; Y92.89 Other specified places as the place of occurrence of the external cause; Y99.8 Other external cause status
CPT/HCPCS: 99283

== ENCOUNTER 2019-02-23 18:44 | Emergency (ER) | payer MEDICARE ==
[~2019-02-23] VITALS: Ht 152.4 cm; Wt 51.0 kg
--- NOTE | 2019-02-23 18:52 | NUR ---
Pt bedside report from Amita hilario. This rn to assume care of pt. Md at bedside for assessment.
--- NOTE | 2019-02-23 18:55 | NUR ---
BIB [facility] FROM HOME W/ CO R SHOULDER AND R HIP PAIN SP [facility] IN SHOWER "I SLIPPED PUTTING KIA IVEY'S OATMEAL LOTION ON". PT ARRIVES W FLIGHT OF IDEAS AND DELUSIONS OF GRANDUER; HX OF BIPOLAR AND SCHIZOPHRENIA. UNKNOWN LOC. PT ANSWERS QUESTIONS OCCASIONALLY. UNABLE TO PROVIDE MEDICAL HX. SPEECH CLEAR, FACE SYMMETRICAL. NO OPEN WOUNDS OR DEFORMITIES NOTED. +CMS TO RUE/RLE, +ETOH PT REFUSING TO WEAR GOWN, REFUSING BLANKETS, REFUSING ARM BAND. BP/SPO2/ECG MONITORING, SINUS TACH HR 90'S. REPORT TO MEAGAN BLAIR.
--- NOTE | 2019-02-23 19:00 | NUR ---
Pt refusing xr. Yelling at [employer] and not allowing anyone near here. notified.
--- NOTE | 2019-02-23 19:04 | NUR ---
pt refusing xray
--- NOTE | 2019-02-23 19:07 | NUR ---
Pt has came in w/o clothing via [facility]. S/o brought clothes in. This rn attempted to help pt get dressed. Refused at this time. "i dont like anyone touching me." Given clothing and requested to get dress. Addendum: 02/23/19 at 191 by [email or web address] Pt has come in w/o clothing via [facility]. S/o brought clothes in. This rn attempted to help pt get dressed. Refused at this time. "i dont like anyone touching me." Given clothing and requested to get dress.
--- NOTE | 2019-02-23 19:11 | NUR ---
Offered d/c paperwork. Refused at this time.
--- NOTE | 2019-02-23 19:38 | NUR ---
Pt talked to this rn and stated pt has attempted multiple self harms in the last couple months, including walking in front of traffic. Pt denies si/sa/hi, but s/o believes pt is a "serious threat to herself." S/o would like a L2K initiated on pt. notified. L2K initiated by this rn.
[2019-02-23] MEDS ORDERED: FURO20TA3 PO (19:57)
[2019-02-23] MEDS ORDERED: CITA10TA4 PO (19:57)
[2019-02-23] MEDS ORDERED: AMOX875T PO (19:57)
[2019-02-23] MEDS ORDERED: TRAM50TA2 PO (19:57)
--- NOTE | 2019-02-23 20:01 | NUR ---
Pt moved to secure room (02). All belongings taken from pt and placed in 2 of 2 bags in secured locker. selene at bedside. sitter in hallway, roller doors in place.
[2019-02-23 20:24] LABS: BASOPHILS # (AUTO) 0.05 x10^3/uL (0-0.1); BASOPHILS % (AUTO) 1 % (0-1); EOSINOPHILS # (AUTO) 0.33 x10^3/uL (0-0.4); EOSINOPHILS % (AUTO) 5 % (1-7); LYMPHOCYTES # (AUTO) 2.54 x10^3/uL (1-3.4); LYMPHOCYTES % (AUTO) 38 % (22-44); MD MORPH REVIEW ONLY; MEAN CORPUSCULAR HEMOGLOBIN 24.3 pg (27.0-34.8); MEAN CORPUSCULAR HGB CONC 31.7 g/dL (32.4-35.8); MEAN CORPUSCULAR VOLUME 76.6 fL (80-100); MEAN PLATELET VOLUME 8.2 fL (7.4-10.4); MONOCYTES # (AUTO) 0.65 x10^3/uL (0.2-0.8); MONOCYTES % (AUTO) 10 % (2-9); NEUTROPHILS % (AUTO) 47 % (42-75); PLATELET COUNT 224 x10^3/uL (130-400); RED BLOOD COUNT 4.27 x10^6/uL (3.82-5.3)
[2019-02-23 20:25] LABS: ANISOCYTOSIS 1+
[2019-02-23 20:27] LABS: <PLATELET ESTIMATE> ADEQUATE; <PLT MORPHOLOGY> NORMAL PLT MORPH; ALANINE AMINOTRANSFERASE 31 U/L (12-78); ALBUMIN 3.5 g/dL (3.4-5.0); ANION GAP 10 mmol/L (5-15); CALCIUM 8.7 mg/dL (8.5-10.1); CHLORIDE 115 mmol/L (98-107); CREATININE 0.83 mg/dL (0.55-1.02); POLYCHROMASIA 1+
[2019-02-23 20:32] LABS: SALICYLATE LEVEL < 1.7 mg/dL (2.8-20.0)
[2019-02-23 20:38] LABS: ACETAMINOPHEN < 2 mcg/mL (10-30); ALKALINE PHOSPHATASE 198 U/L (45-117); BILIRUBIN,TOTAL 0.1 mg/dL (0.2-1.0); TOTAL PROTEIN 7.4 g/dL (6.4-8.2)
--- NOTE | 2019-02-23 20:55 | NUR ---
Pt will become acutely irritated, but is easily redirected and is upset that she is now on a hold. Pt consistently irritated w/ and asked to wait outside the room. sitter remains in hallway.
[2019-02-23] MEDS ORDERED: ZIPRASIDONE 20 MG INJ IM ONE ×2 (21:02→21:30)
--- NOTE | 2019-02-23 21:16 | NUR ---
Pt refusing all tx. multiple techs have attempted an ekg. postponed and pt running into the hallway yelling for people not to touch her and "she is getting the fuck out of here." Not responding to any redirection efforts. Pt medicated per mar.
--- NOTE | 2019-02-23 22:27 | NUR ---
Pt sleeping comfortably on gurney. Rr even and unlabored. Awoken for ekg again. Refusing ekg.
--- NOTE | 2019-02-23 23:01 | NUR ---
Pt sleeping comfortably on gurney. Rr even and unlabored.
--- NOTE | 2019-02-23 23:54 | NUR ---
Pt sleeping comfortably on gurney. Rr even and unlabored.
--- NOTE | 2019-02-24 00:41 | NUR ---
Pt sleeping comfortably on gurney. Rr even and unlabored.
--- NOTE | 2019-02-24 00:53 | NUR ---
Pt report to Jacquelyn hilario.
--- NOTE | 2019-02-24 01:53 | NUR ---
PT SLEEPING ON GURNEY WITH SITTER AT BEDSIDE. RESPIRATIONS EVEN AND UNLABORED.
--- NOTE | 2019-02-24 02:50 | NUR ---
PT REMAINS SLEEPING. SITTER AT BEDSIDE.
--- NOTE | 2019-02-24 03:54 | NUR ---
PT AWAKE AND COOPERATIVE. EXPLAINED WHY ON LEGAL HOLD AND VOICES UNDERSTANDING. STATES "SHE KNOWS SHE NEEDS PSYCHIATRIC HELP BECAUSE SHE HAS BEEN UNDER ALOT OF STRESS. SHE IS GOING TO BECOME HOMELESS AT NOON TODAY." PT ALSO ADMITTED TO DRINKING ALOT LATELY AND IS CONCERNED SHE WILL BE GOING THRU DT[facility]. ALSO ASKING ABOUT HER HOME MEDICATION THAT SHE DOESN'T WANT TO MISS HER DOSAGES AND ASKING FOR SOMETHING TO HELP HER RELAX.
[2019-02-24] MEDS ORDERED: LORazepam 1MG TABLET PO ONE (04:00)
[2019-02-24] MEDS ORDERED: LORazepam 1MG TABLET ONE (04:01)
--- NOTE | 2019-02-24 04:32 | NUR ---
TELEPSYCH PAGED AT THIS TIME.
--- NOTE | 2019-02-24 04:40 | NUR ---
PT AGREED FOR EKG TO BE DONE. BREATHALYZER 0.075. DR. SILVA AT BEDSIDE, PT UPDATED ON POC.
--- NOTE | 2019-02-24 04:54 | NUR ---
URINE DRUG SCREEN OBTAINED. UPDATED ON PLAN OF CARE.
[2019-02-24 05:25] LABS: AMPHETAMINE SCREEN, URINE Negative (Negative); BARBITURATE SCREEN, URINE Negative (Negative); BENZODIAZEPINE SCREEN, URINE Negative (Negative); CANNABINOID SCREEN, URINE Negative (Negative); COCAINE SCREEN, URINE Negative (Negative); METHADONE SCREEN, URINE Negative (Negative); OPIATE SCREEN, URINE Negative (Negative)
--- NOTE | 2019-02-24 05:46 | NUR ---
UPDATE GIVEN TO TELEPSYCH DOCTOR. WILL SPEAK WITH PATIENT.
[2019-02-24 06:04] VITALS: BP 128/75
--- NOTE | 2019-02-24 06:08 | NUR ---
UPDATE RECIEVED FROM TELEPSYCH PHYSICIAN THAT PT IS NOT STABLE TO BE DISCHARGED HOME. PT HAS NOT SEEN A PSYCHIATRIST IN 4 YEARS AND HAS HAD HER PSYCHIATRIC MEDICATIONS MANAGED BY A PRIMARY PHYSICIAN. TELEPSYCH PHYSICIAN FEELS SHE NEEDS TO BE ON [place] TO STABILIZE HER MOODS.
--- NOTE | 2019-02-24 06:44 | NUR ---
KAEL RN: PACKET FAXED TO [facility], [facility], [facility], [facility], [facility], AND [facility]. AWAITING FAX CONFIRMATION.
--- NOTE | 2019-02-24 06:58 | NUR ---
REPORT GIVEN TO ANGELIQUE RHODES.
--- NOTE | 2019-02-24 07:01 | NUR ---
RECEIVED REPORT FROM BASSAM BAKER RN. PT SLEEPING ON GURCHLOÉ. L[place]HELL. SITTER REMAINS AT BEDSIDE. ROOM REMAINS SECURE.
--- NOTE | 2019-02-24 07:57 | NUR ---
REPORT GIVEN TO CHRISTOPHER AT [facility]. THEY WILL ACCEPT PT. DR. DIGGS WILL BE TAKING OVER CARE OF PT.
--- NOTE | 2019-02-24 08:25 | NUR ---
PT PROVIDED W/ SI BREAKFAST TRAY. AWARE PT WILL BE TRANSPORTED TO PSYCH FACILITY. SITTER REMAINS AT BEDSIDE. ROOM REMAINS SECURE.
== END 2019-02-24 08:50 ==
LOC: ED 19:04 → EDIP 02-24 06:35 → UNDOADMIN 02-24 06:35 → ED 02-24 08:50
DX: S40.011A Contusion of right shoulder, initial encounter (principal); R45.851 Suicidal ideations; F10.220 Alcohol dependence with intoxication, uncomplicated; D63.8 Anemia in other chronic diseases classified elsewhere; F33.2 Major depressive disorder, recurrent severe without psychotic features; I10 Essential (primary) hypertension; F41.9 Anxiety disorder, unspecified; Z90.710 Acquired absence of both cervix and uterus; Z90.49 Acquired absence of other specified parts of digestive tract
CPT/HCPCS: 36415; 73030; 80053; 80307; 80329; 84443; 85025; 93005; 96372; 99285; J3486; G0480

== ENCOUNTER 2019-04-02 18:05 | Inpatient (IN) | payer MEDICARE ==
[~2019-04-02] VITALS: Ht 160 cm; Wt 62.8 kg
[~2019-04-02 18:05] MED LIST changes: +AMOX875T PO; +CITA10TA4 PO; +FURO20TA3 PO; +TRAM50TA2 PO
[2019-04-02] MEDS ORDERED: SODIUM CHLORIDE 0.9% 1,000 ML IV ONE (18:18)
--- NOTE | 2019-04-02 18:20 | NUR ---
PT INFORMATION: DONNIE RODRIGES , [id number] [place].
[2019-04-02] MEDS ORDERED: THIAMINE 100 MG in SODIUM CHLORIDE 0.9% 50 ML IVPB ONE (18:30)
[2019-04-02] MEDS ORDERED: SODIUM CHLORIDE FLUSH 10ML SYR IVF ONE (18:30)
[2019-04-02] MEDS ORDERED: LORazepam 2 MG/ML, 1ML IVPush PRN (18:30)
[2019-04-02] MEDS ORDERED: SODIUM CHLORIDE 0.9% 1,000ML IVBOLUS ONE (18:30)
[2019-04-02] MEDS ORDERED: THIAMINE 100 MG in DEXTROSE 5% 50 ML IVPB ONE (18:30)
[2019-04-02] MEDS ORDERED: ONDANSETRON 2MG/ML, 2ML IVPush ONE (18:30)
[2019-04-02 18:51] LABS: MD YES; MEAN CORPUSCULAR HEMOGLOBIN 24.7 pg (27.0-34.8); MEAN CORPUSCULAR HGB CONC 31.1 g/dL (32.4-35.8); MEAN CORPUSCULAR VOLUME 79.2 fL (80-100); MEAN PLATELET VOLUME 7.5 fL (7.4-10.4); PLATELET COUNT 215 x10^3/uL (130-400); RED BLOOD COUNT 4.69 x10^6/uL (3.82-5.3); RED CELL DISTRIBUTION WIDTH 21.6 % (9.6-15.2)
[2019-04-02 18:52] LABS: ALANINE AMINOTRANSFERASE 24 U/L (12-78); ALBUMIN 3.9 g/dL (3.4-5.0); ANION GAP 14 mmol/L (5-15); CALCIUM 8.3 mg/dL (8.5-10.1); CHLORIDE 105 mmol/L (98-107); CREATININE 0.96 mg/dL (0.55-1.02)
[2019-04-02 18:54] LABS: ALKALINE PHOSPHATASE 183 U/L (45-117); BILIRUBIN,TOTAL 0.6 mg/dL (0.2-1.0)
--- NOTE | 2019-04-02 19:00 | NUR ---
This RN attempted IV access x2 without success. Matt RHODES at bedside to attempt IV access. Report to Matt RHODES.
[2019-04-02 19:04] LABS: EOS#(MANUAL) 0.21 x10^3/uL (0.0-0.4); EOS% (MANUAL) 3 % (1-7); LYMPH#(MANUAL) 2.24 x10^3/uL (1-3.4); LYMPHS% (MANUAL) 32 % (22-44); MONOS#(MANUAL) 0.28 x10^3/uL (0.3-2.7); MONOS% (MANUAL) 4 % (2-9); SEG#(MANUAL) 4.27 x10^3/uL (1.8-6.8); SEGS% (MANUAL) 61 % (42-75)
[2019-04-02 19:05] LABS: ANISOCYTOSIS 1+
[2019-04-02 19:06] LABS: <PLATELET ESTIMATE> ADEQUATE; <PLT MORPHOLOGY> NORMAL PLT MORPH; POLYCHROMASIA 1+
[2019-04-02] MEDS ORDERED: POTASSIUM CHLORIDE 40 MEQ in SODIUM CHLORIDE 0.9% 1,000 ML IV ONE (19:08)
--- NOTE | 2019-04-02 19:18 | NUR ---
Report from Hanane RHODES. This rn has attempted multiple ivs, on top of last rn's iv's. No success. To attempt us iv.
[2019-04-02] MEDS ORDERED: LORazepam 2 MG/ML, 1ML ONE (19:53)
[2019-04-02] MEDS ORDERED: ONDANSETRON 2MG/ML, 2ML ONE (19:53)
--- NOTE | 2019-04-02 19:59 | NUR ---
Iv established is infiltrated and removed. Report delayed for start of line.
[2019-04-02] MEDS ORDERED: SODIUM CHLORIDE FLUSH 10ML SYR IVF PRN (20:00)
[2019-04-02] MEDS ORDERED: POTASSIUM CHLORIDE 20 MEQ, MAGNESIUM SULFATE 2 GM, THIAMINE 200 MG, MVI ADULT 10 ML, FO... IV SCH (20:24)
[2019-04-02] MEDS ORDERED: PROMETHAZINE 25MG TABLET PO PRN (20:30)
[2019-04-02] MEDS ORDERED: POTASSIUM CHLORIDE 20 MEQ TAB.ER.PRT PO ONE (20:30)
[2019-04-02] MEDS ORDERED: CHLORDIAZEPOXIDE 25 MG CAPSULE PO PRN ×3 (20:30)
[2019-04-02] MEDS ORDERED: PROMETHAZINE 12.5 MG SUPP PR PRN (20:30)
[2019-04-02] MEDS ORDERED: ONDANSETRON 2MG/ML, 2ML IV PRN (20:30)
[2019-04-02] MEDS ORDERED: ACETAMINOPHEN 325 MG TABLET PO PRN (20:30)
[2019-04-02] MEDS ORDERED: LABETALOL 5MG/ML, 20ML IVPush PRN (20:30)
[2019-04-02] MEDS ORDERED: FOLIC ACID 5 MG/ML IM ONE (20:30)
[2019-04-02 21:00] VITALS: BP 156/93
[2019-04-02] MEDS: POTASSIUM CHLORIDE 20 MEQ, MAGNESIUM SULFATE 2 GM, THIAMINE 200 MG, MVI ADULT 10 ML, FO... IV SCH (21:00)
[2019-04-02] MEDS ORDERED: FOLIC ACID 1 MG TABLET PO ONE (21:30)
[2019-04-02] MEDS: PROPRANOLOL 20 MG TABLET PO SCH (23:01)
[2019-04-02] MEDS: ENOXAPARIN 40 MG/0.4 ML SQ SCH (23:01)
[2019-04-02] MEDS: TRAZODONE 50MG TABLET PO PRN (23:01)
[2019-04-02] MEDS: CHLORDIAZEPOXIDE 10 MG CAPSULE PO PRN (23:02)
[2019-04-03 01:00] VITALS: BP 132/81
[2019-04-03] MEDS ORDERED: POTASSIUM CHLORIDE 20 MEQ TAB.ER.PRT PO ONE ×3 (02:00→11:30)
[2019-04-03 04:21] LABS: BASOPHILS # (AUTO) 0.04 x10^3/uL (0-0.1); BASOPHILS % (AUTO) 1 % (0-1); EOSINOPHILS # (AUTO) 0.04 x10^3/uL (0-0.4); EOSINOPHILS % (AUTO) 1 % (1-7); LYMPHOCYTES # (AUTO) 1.93 x10^3/uL (1-3.4); LYMPHOCYTES % (AUTO) 29 % (22-44); MD NO; MEAN CORPUSCULAR HEMOGLOBIN 25.1 pg (27.0-34.8); MEAN CORPUSCULAR HGB CONC 31.8 g/dL (32.4-35.8); MEAN CORPUSCULAR VOLUME 79.1 fL (80-100); MEAN PLATELET VOLUME 7.5 fL (7.4-10.4); MONOCYTES # (AUTO) 0.36 x10^3/uL (0.2-0.8); MONOCYTES % (AUTO) 6 % (2-9); NEUTROPHILS % (AUTO) 65 % (42-75); PLATELET COUNT 164 x10^3/uL (130-400); RED BLOOD COUNT 4.27 x10^6/uL (3.82-5.3); RED CELL DISTRIBUTION WIDTH 21.8 % (9.6-15.2)
[2019-04-03 04:30] LABS: ALANINE AMINOTRANSFERASE 21 U/L (12-78); ALBUMIN 3.5 g/dL (3.4-5.0); ANION GAP 11 mmol/L (5-15); CALCIUM 7.9 mg/dL (8.5-10.1); CHLORIDE 108 mmol/L (98-107); CREATININE 0.87 mg/dL (0.55-1.02)
[2019-04-03 04:32] LABS: ALKALINE PHOSPHATASE 180 U/L (45-117); BILIRUBIN,TOTAL 0.9 mg/dL (0.2-1.0); TOTAL PROTEIN 7.2 g/dL (6.4-8.2)
[2019-04-03] MEDS: CHLORDIAZEPOXIDE 10 MG CAPSULE PO PRN (04:34)
[2019-04-03 05:32] LABS: CULTURE INDICATED? YES; MICROSCOPIC AUTO
[2019-04-03 05:36] LABS: CLOSTRIDIUM DIFFICILE ANTIGEN NEGATIVE; CLOSTRIDIUM DIFFICILE TOXIN NEGATIVE (Negative)
[2019-04-03 07:31] VITALS: BP 143/80
[2019-04-03] MEDS ORDERED: LORazepam 1MG TABLET PO PRN ×3 (08:30)
[2019-04-03] MEDS ORDERED: LORazepam 0.5MG TABLET PO PRN (08:30)
[2019-04-03] MEDS ORDERED: LORazepam 2 MG/ML, 1ML IV PRN ×5 (08:30)
[2019-04-03] MEDS: CHLORDIAZEPOXIDE 25 MG CAPSULE PO SCH ×3 (08:39→20:37)
[2019-04-03] MEDS: PANTOPROZOLE 40MG TABLET PO SCH (08:40)
[2019-04-03] MEDS: ONDANSETRON 4 MG TABLET PO PRN (08:40)
[2019-04-03] MEDS: PROPRANOLOL 20 MG TABLET PO SCH ×2 (11:42→20:37)
[2019-04-03] MEDS: LORazepam 1MG TABLET PO PRN (12:07)
[2019-04-03 13:23] VITALS: BP 112/75
[2019-04-03] MEDS: POTASSIUM CHLORIDE 20 MEQ, MAGNESIUM SULFATE 1 GM, FOLIC ACID 1 MG, THIAMINE 200 MG, MV... IV SCH (14:44)
[2019-04-03 17:20] LABS: ANION GAP 6 mmol/L (5-15); CALCIUM 8.1 mg/dL (8.5-10.1); CHLORIDE 111 mmol/L (98-107); CREATININE 0.75 mg/dL (0.55-1.02)
[2019-04-03 20:25] VITALS: BP_SYST 102; BP_SYST 153; BP_DIAS 70; BP_DIAS 71
[2019-04-03] MEDS: ENOXAPARIN 40 MG/0.4 ML SQ SCH (20:36)
[2019-04-03] MEDS: TRAZODONE 50MG TABLET PO PRN (20:37)
[2019-04-03 20:40] VITALS: BP 102/72
[2019-04-03] MEDS: POTASSIUM CHLORIDE 20 MEQ, MAGNESIUM SULFATE 2 GM, THIAMINE 200 MG, MVI ADULT 10 ML, FO... IV SCH (21:00)
[2019-04-04 00:37] VITALS: BP 100/69
[2019-04-04 05:32] VITALS: BP 111/76
[2019-04-04] MEDS: PROPRANOLOL 20 MG TABLET PO SCH ×2 (05:32→18:00)
[2019-04-04 05:41] LABS: MEAN CORPUSCULAR HEMOGLOBIN 25.2 pg (27.0-34.8); MEAN CORPUSCULAR HGB CONC 31.4 g/dL (32.4-35.8); MEAN PLATELET VOLUME 7.7 fL (7.4-10.4); PLATELET COUNT 126 x10^3/uL (130-400); RED BLOOD COUNT 3.83 x10^6/uL (3.82-5.3); RED CELL DISTRIBUTION WIDTH 23.5 % (9.6-15.2)
[2019-04-04 06:15] LABS: BASOPHILS # (AUTO) 0.06 x10^3/uL (0-0.1); BASOPHILS % (AUTO) 1 % (0-1); EOSINOPHILS # (AUTO) 0.12 x10^3/uL (0-0.4); EOSINOPHILS % (AUTO) 3 % (1-7); LYMPHOCYTES # (AUTO) 2.43 x10^3/uL (1-3.4); LYMPHOCYTES % (AUTO) 50 % (22-44); MD SCAN; MONOCYTES # (AUTO) 0.45 x10^3/uL (0.2-0.8); MONOCYTES % (AUTO) 9 % (2-9); NEUTROPHILS # (AUTO) 1.79 x10^3/uL (1.8-6.8); NEUTROPHILS % (AUTO) 37 % (42-75)
[2019-04-04 06:29] LABS: CHLORIDE 111 mmol/L (98-107)
[2019-04-04 06:56] LABS: ALANINE AMINOTRANSFERASE 16 U/L (12-78); ALKALINE PHOSPHATASE 161 U/L (45-117); ANION GAP 8 mmol/L (5-15); BILIRUBIN,TOTAL 0.8 mg/dL (0.2-1.0); CALCIUM 7.9 mg/dL (8.5-10.1); CREATININE 0.72 mg/dL (0.55-1.02); TOTAL PROTEIN 6.3 g/dL (6.4-8.2)
[2019-04-04] MEDS ORDERED: SODIUM PHOSPHATE 30 MMOL in SODIUM CHLORIDE 0.9% 500 ML IV ONE (07:30)
[2019-04-04] MEDS ORDERED: SODIUM PHOSPHATE 4 MEQ/ML IV SCH (07:30)
[2019-04-04 08:00] VITALS: BP 86/55
[2019-04-04] MEDS: PANTOPROZOLE 40MG TABLET PO SCH (08:27)
[2019-04-04] MEDS: CHLORDIAZEPOXIDE 25 MG CAPSULE PO SCH ×3 (08:28→20:49)
[2019-04-04 14:00] VITALS: BP 90/60
[2019-04-04] MEDS: POTASSIUM CHLORIDE 20 MEQ, MAGNESIUM SULFATE 1 GM, FOLIC ACID 1 MG, THIAMINE 200 MG, MV... IV SCH (14:00)
[2019-04-04] MEDS: ENOXAPARIN 40 MG/0.4 ML SQ SCH (20:50)
[2019-04-04] MEDS: TRAZODONE 50MG TABLET PO PRN (20:50)
[2019-04-04 20:57] VITALS: BP 127/85
[2019-04-04 23:14] VITALS: BP 111/79
[2019-04-05] MEDS: ONDANSETRON 4 MG TABLET PO PRN (05:17)
[2019-04-05] MEDS: PROPRANOLOL 20 MG TABLET PO SCH ×2 (05:25→18:00)
[2019-04-05 07:35] VITALS: BP 96/64
[2019-04-05] MEDS: NEUTRA PHOS K 250 MG TABLET PO SCH ×3 (10:25→21:19)
[2019-04-05] MEDS: PANTOPROZOLE 40MG TABLET PO SCH (10:26)
[2019-04-05] MEDS: CHLORDIAZEPOXIDE 25 MG CAPSULE PO SCH ×2 (10:26→21:19)
[2019-04-05 14:05] VITALS: BP 88/57
[2019-04-05] MEDS: POTASSIUM CHLORIDE 20 MEQ, MAGNESIUM SULFATE 1 GM, FOLIC ACID 1 MG, THIAMINE 200 MG, MV... IV SCH (15:09)
[2019-04-05 18:21] VITALS: BP 101/62
[2019-04-05 19:39] VITALS: BP 97/68
[2019-04-05] MEDS: ENOXAPARIN 40 MG/0.4 ML SQ SCH (21:19)
[2019-04-06 00:04] VITALS: BP 114/77
[2019-04-06 05:44] VITALS: BP 92/62
[2019-04-06] MEDS: PROPRANOLOL 20 MG TABLET PO SCH (05:57)
[2019-04-06] MEDS: LORazepam 1MG TABLET PO PRN (06:14)
[2019-04-06 06:35] LABS: MEAN CORPUSCULAR HEMOGLOBIN 26.1 pg (27.0-34.8); MEAN CORPUSCULAR HGB CONC 31.6 g/dL (32.4-35.8); MEAN CORPUSCULAR VOLUME 82.6 fL (80-100); MEAN PLATELET VOLUME 7.9 fL (7.4-10.4); PLATELET COUNT 116 x10^3/uL (130-400); RED BLOOD COUNT 3.52 x10^6/uL (3.82-5.3); RED CELL DISTRIBUTION WIDTH 24.8 % (9.6-15.2)
[2019-04-06 06:38] LABS: ALBUMIN 2.7 g/dL (3.4-5.0); ANION GAP 5 mmol/L (5-15); CHLORIDE 113 mmol/L (98-107)
[2019-04-06 06:42] LABS: ALANINE AMINOTRANSFERASE 13 U/L (12-78); ALKALINE PHOSPHATASE 134 U/L (45-117); BILIRUBIN,TOTAL 0.3 mg/dL (0.2-1.0); CREATININE 0.81 mg/dL (0.55-1.02); TOTAL PROTEIN 5.8 g/dL (6.4-8.2)
[2019-04-06 07:30] VITALS: BP 131/76
[2019-04-06 07:32] LABS: BASOPHILS # (AUTO) 0.04 x10^3/uL (0-0.1); BASOPHILS % (AUTO) 1 % (0-1); EOSINOPHILS # (AUTO) 0.13 x10^3/uL (0-0.4); EOSINOPHILS % (AUTO) 3 % (1-7); LYMPHOCYTES # (AUTO) 1.65 x10^3/uL (1-3.4); LYMPHOCYTES % (AUTO) 43 % (22-44); MD SCAN; MONOCYTES # (AUTO) 0.32 x10^3/uL (0.2-0.8); MONOCYTES % (AUTO) 8 % (2-9); NEUTROPHILS # (AUTO) 1.74 x10^3/uL (1.8-6.8); NEUTROPHILS % (AUTO) 45 % (42-75)
[2019-04-06] MEDS ORDERED: CHLORDIAZEPOXIDE 25 MG CAPSULE PO SCH (09:00)
[2019-04-06] MEDS: PANTOPROZOLE 40MG TABLET PO SCH ×2 (09:35→20:54)
[2019-04-06 13:21] VITALS: BP 129/70
[2019-04-06] MEDS ORDERED: THIAMINE 100MG TABLET ONE (15:04)
[2019-04-06] MEDS ORDERED: FOLIC ACID 1 MG TABLET ONE (15:04)
[2019-04-06] MEDS ORDERED: MULTIVITAMIN 1 TABLET ONE (15:04)
[2019-04-06] MEDS: THIAMINE 100MG TABLET PO SCH (15:06)
[2019-04-06] MEDS: MULTIVITAMIN 1 TABLET PO SCH (15:06)
[2019-04-06] MEDS: FOLIC ACID 1 MG TABLET PO SCH (15:07)
[2019-04-06 20:06] VITALS: BP 141/88
[2019-04-06] MEDS: ENOXAPARIN 40 MG/0.4 ML SQ SCH (20:54)
[2019-04-07 00:30] VITALS: BP 145/90
[2019-04-07 07:05] VITALS: BP 148/88
[2019-04-07] MEDS: MULTIVITAMIN 1 TABLET PO SCH (08:24)
[2019-04-07] MEDS: THIAMINE 100MG TABLET PO SCH (08:24)
[2019-04-07] MEDS: PANTOPROZOLE 40MG TABLET PO SCH (08:24)
[2019-04-07] MEDS: FOLIC ACID 1 MG TABLET PO SCH (08:24)
[2019-04-07 13:47] VITALS: BP 103/71
[2019-04-07] MEDS ORDERED: FOLI-17 PO (15:15)
[2019-04-07] MEDS ORDERED: PANT40TA5 PO (15:15)
[2019-04-07] MEDS ORDERED: MULT1TAB60 PO (15:15)
== END 2019-04-07 19:17 | disposition home or self-care (01) | DRG 392 ==
LOC: ED 18:43 → EDIP 19:36 → 4WST 20:45
PROVIDERS: ADMIT Family Medicine; ATTEND Family Medicine
PROC: 02HV33Z Insertion of Infusion Device into Superior Vena Cava, Percutaneous Approach (ICD-10-PCS; principal; 2019-04-03)
PROC: B5181ZA Fluoroscopy of Superior Vena Cava using Low Osmolar Contrast, Guidance (ICD-10-PCS; 2019-04-03)
PROC: B548ZZA Ultrasonography of Superior Vena Cava, Guidance (ICD-10-PCS; 2019-04-03)
DX: K29.20 Alcoholic gastritis without bleeding (principal); F10.239 Alcohol dependence with withdrawal, unspecified; E87.6 Hypokalemia; K70.30 Alcoholic cirrhosis of liver without ascites; I10 Essential (primary) hypertension; D69.6 Thrombocytopenia, unspecified; E86.0 Dehydration; F31.9 Bipolar disorder, unspecified; F43.10 Post-traumatic stress disorder, unspecified; H40.9 Unspecified glaucoma; K21.9 Gastro-esophageal reflux disease without esophagitis; K04.7 Periapical abscess without sinus; H54.8 Legal blindness, as defined in USA; K52.9 Noninfective gastroenteritis and colitis, unspecified; Y90.7 Blood alcohol level of 200-239 mg/100 ml; Z59.0 Homelessness; Z86.19 Personal history of other infectious and parasitic diseases; Z87.11 Personal history of peptic ulcer disease; Z90.710 Acquired absence of both cervix and uterus; Z90.49 Acquired absence of other specified parts of digestive tract
CPT/HCPCS: 36415; 36573; 80048; 80053; 80307; 81001; 82962; 83690; 83735; 84100; 85025; 87086; 87324; 93005; 96365; 96375; G0378; J1650; J2405; J3411; J3475; J3480; Q0162; Q0169; C1751; J2060; J7030; J7040; J7121

== ENCOUNTER 2019-04-23 16:56 | Emergency (ER) | payer MEDICARE ==
[~2019-04-23] VITALS: Ht 160 cm; Wt 54.5 kg
[~2019-04-23 16:56] MED LIST changes: +FOLI-17 PO; +MULT1TAB60 PO; +PANT40TA5 PO
--- NOTE | 2019-04-23 17:15 | NUR ---
PT BIB [facility] & [facility] ON L2K. PT STATES SHE WAS DRINKING [place]OD[place] TODAY AND TOLD HER THAT SHE WAS GOING TO OVERDOSE ON HIS INSULIN. PT'S CALLED [employer] WHO PLACED PT ON L2K. PT TANGENTIAL AND MANIPULATIVE IN SPEECH (PT COMPLIMENTING STAFF TO EXCESS, DIVERGING FROM THE QUESTIONS OF HER TRIAGE TO J[facility], HER BSN IN NURSING, HER DOG, ETC.) SITTER AT DOORWAY, PT REQUESTED TO PROVIDE UA, NAD, NO NEEDS, GIVEN WARM BLANKETS, CHANGED INTO GOWNS & GIVEN HOSPITAL SOCKS, BELONGINGS SECURED IN SINGLE BAG & MEDS TO BE SENT O PHARMACY
[2019-04-23] MEDS ORDERED: LORazepam 1MG TABLET PO ONE (17:30)
[2019-04-23] MEDS ORDERED: PLEASE ENTER HEIGHT AND WEIGHT MC SCH (17:30)
[2019-04-23 17:47] LABS: CALCIUM 8.8 mg/dL (8.5-10.1); CHLORIDE 105 mmol/L (98-107); MD YES; MEAN CORPUSCULAR HEMOGLOBIN 25.8 pg (27.0-34.8); MEAN CORPUSCULAR HGB CONC 31.5 g/dL (32.4-35.8); MEAN CORPUSCULAR VOLUME 81.9 fL (80-100); MEAN PLATELET VOLUME 8.3 fL (7.4-10.4); PLATELET COUNT 452 x10^3/uL (130-400); RED BLOOD COUNT 4.33 x10^6/uL (3.82-5.3); RED CELL DISTRIBUTION WIDTH 24.7 % (9.6-15.2)
[2019-04-23 17:53] LABS: ALANINE AMINOTRANSFERASE 24 U/L (12-78); ALBUMIN 4.1 g/dL (3.4-5.0); ALKALINE PHOSPHATASE 130 U/L (45-117); ANION GAP 8 mmol/L (5-15); BILIRUBIN,TOTAL 0.3 mg/dL (0.2-1.0); CREATININE 0.92 mg/dL (0.55-1.02); TOTAL PROTEIN 8.3 g/dL (6.4-8.2)
[2019-04-23 18:02] LABS: SALICYLATE LEVEL < 1.7 mg/dL (2.8-20.0)
--- NOTE | 2019-04-23 18:14 | NUR ---
meal tray ordered, pt in bed, in suicide secured room, nad, no needs at this time, sitter at doorway, [facility].
[2019-04-23 18:22] LABS: EOS#(MANUAL) 0.41 x10^3/uL (0.0-0.4); EOS% (MANUAL) 6 % (1-7); LYMPH#(MANUAL) 2.72 x10^3/uL (1-3.4); LYMPHS% (MANUAL) 40 % (22-44); MONOS#(MANUAL) 0.34 x10^3/uL (0.3-2.7); MONOS% (MANUAL) 5 % (2-9); SEG#(MANUAL) 3.33 x10^3/uL (1.8-6.8); SEGS% (MANUAL) 49 % (42-75)
[2019-04-23 18:34] LABS: HYPOCHROMIA 1+
[2019-04-23 18:35] LABS: MICROCYTOSIS 1+
[2019-04-23 18:36] LABS: OVALOCYTES 1+; POLYCHROMASIA 1+
[2019-04-23 18:37] LABS: TARGET CELLS 1+; TEAR DROPS 1+
[2019-04-23 18:38] LABS: <PLATELET ESTIMATE> INCREASED; <PLT MORPHOLOGY> NORMAL PLT MORPH
[2019-04-23] MEDS ORDERED: SPIR25TA5 PO (18:41)
[2019-04-23] MEDS ORDERED: DIPH25CA61 PO (18:41)
[2019-04-23] MEDS ORDERED: ALBU0.63 NEB (18:41)
[2019-04-23] MEDS ORDERED: propanolol (18:41)
[2019-04-23] MEDS ORDERED: LORazepam 1MG TABLET ONE (18:44)
--- NOTE | 2019-04-23 18:57 | NUR ---
pt belongings secured in locked cabinet x 1 bag with pt label on it. pt medications walked to pharmacy x 5 bottles with mixed pills in each bottle. med req completed before walking meds to pharm. pt medicated per emar. pt provided a meal.
--- NOTE | 2019-04-23 19:19 | NUR ---
Received pt from MEAGAN Perez. Pt given meal tray and is currently eating. Pt is cooperative and following directions. Sitter in doorway. Will continue to monitor.
--- NOTE | 2019-04-23 20:53 | NUR ---
Breathalyzer: 0.069
--- NOTE | 2019-04-23 20:56 | NUR ---
KAEL RN: SOC CONSULT INITIATED AND PHONECALL PLACED. PER ARLENE, PSYCHIATRIST TO CALL BACK TO [facility]ENCE CONSULT MOMENTARILY. ALL QUESTIONS ANSWERED AT THIS TIME.
--- NOTE | 2019-04-23 22:02 | NUR ---
Pt is currently sleeping. Respirations even and non-labored. Awaiting Tele-Psyc. Sitter in doorway. Will continue to monitor.
--- NOTE | 2019-04-23 22:55 | NUR ---
Pt currently sleeping. Even respirations observed. Still awating tele-psyc. Sitter in doorway. Will continue to monitor.
[2019-04-24 00:10] VITALS: BP 103/61
--- NOTE | 2019-04-24 00:25 | NUR ---
Pt awakened to take vitals and is cooperative. All VS's within normal range. Will continue to monitor.
--- NOTE | 2019-04-24 01:20 | NUR ---
Pt currently being tele-psyced.
--- NOTE | 2019-04-24 01:34 | NUR ---
Tele-psyc completed. Patient to be discharged when paperwork from tele-psyc is faxed to ED.
--- NOTE | 2019-04-24 01:42 | NUR ---
TASK RN: PT PROVIDED BELONGINGS BAG (10/27) FROM LOCKER AND ASKED TO DRESS.
--- NOTE | 2019-04-24 01:53 | NUR ---
TASK RN: THIS RN RETREIVED MEDS FROM PHARMACY, TOTAL 5 BOTTLES OF ASSORTED MEDICATIONS. PROVIDED TO PT. DC EDUCATION PROVIDED, PT AMBULATED STEADILY TO DC WITH RNMAIK.
== END 2019-04-24 01:57 | disposition home or self-care (01) ==
LOC: ED 19:20
DX: R45.851 Suicidal ideations (principal); F10.220 Alcohol dependence with intoxication, uncomplicated; Y90.9 Presence of alcohol in blood, level not specified; Z72.9 Problem related to lifestyle, unspecified; F31.9 Bipolar disorder, unspecified; Z90.49 Acquired absence of other specified parts of digestive tract; Z90.710 Acquired absence of both cervix and uterus
CPT/HCPCS: 36415; 80053; 80307; 85025; 99284

== ENCOUNTER 2019-05-20 22:09 | Emergency (ER) | payer MEDICARE ==
[~2019-05-20] VITALS: Ht 160 cm; Wt 50.0 kg
[2019-05-20 22:18] VITALS: BP 131/76
== END 2019-05-20 23:46 | disposition home or self-care (01) ==
LOC: ED 22:42
DX: H40.89 Other specified glaucoma (principal); F31.9 Bipolar disorder, unspecified; I10 Essential (primary) hypertension; F41.9 Anxiety disorder, unspecified; Z90.710 Acquired absence of both cervix and uterus; Z90.49 Acquired absence of other specified parts of digestive tract
CPT/HCPCS: 99282

== ENCOUNTER 2019-11-15 08:11 | Emergency (ER) | payer MEDICARE ==
[~2019-11-15] VITALS: Ht 160 cm; Wt 56.7 kg
[~2019-11-15 08:11] MED LIST changes: +ACET325T26 PO; +ALBU0.63 NEB; +AMIO200T42 PO; +DIPH25CA61 PO; +METO25TA35 PO; +OMEP40CA42 PO; -OMEP40CA6 PO; +PROP60CA36 PO; -PROP60CA8 PO; +RIFA550T4 PO; +SPIR25TA5 PO; +TIMO1DRO2 EACHEYE; +propanolol
[2019-11-15 08:41] VITALS: BP 123/78
== END 2019-11-15 10:41 | disposition home or self-care (01) ==
LOC: ED 10:35
DX: H10.022 Other mucopurulent conjunctivitis, left eye (principal); I48.91 Unspecified atrial fibrillation; I10 Essential (primary) hypertension
CPT/HCPCS: 99283

== ENCOUNTER 2020-06-29 01:24 | Inpatient (IN) | payer MEDICARE ==
[~2020-06-29] VITALS: Ht 157.5 cm; Wt 62.5 kg
[~2020-06-29 01:24] MED LIST changes: +MULT-449 PO; -MULT1TAB60 PO; -PANT40TA5 PO; +PANT40TA6 PO; -TRAZ-137 PO; +TRAZ-175 PO
[2020-06-29] MEDS ORDERED: SODIUM CHLORIDE 0.9% 1,000ML IVBOLUS ONE (01:30)
[2020-06-29] MEDS ORDERED: LORazepam 2 MG/ML, 1ML IVPush ONE (01:30)
[2020-06-29] MEDS ORDERED: SODIUM CHLORIDE FLUSH 10ML SYR IVF ONE (01:30)
[2020-06-29] MEDS ORDERED: MORPHINE SULFATE 4 MG/ML, 1ML IVPush PRN (01:30)
--- NOTE | 2020-06-29 01:31 | NUR ---
REPORT GIVEN TO MEAGAN WHITE
[2020-06-29 01:51] LABS: MEAN CORPUSCULAR HEMOGLOBIN 33.8 pg (27.0-34.8); MEAN CORPUSCULAR HGB CONC 32.8 g/dL (32.4-35.8); MEAN CORPUSCULAR VOLUME 103.2 fL (80-100); MEAN PLATELET VOLUME 8.4 fL (7.4-10.4); PLATELET COUNT 115 x10^3/uL (130-400); RED BLOOD COUNT 3.71 x10^6/uL (3.82-5.3); RED CELL DISTRIBUTION WIDTH 23.4 % (9.6-15.2)
[2020-06-29 01:53] LABS: ALANINE AMINOTRANSFERASE 39 U/L (12-78); ALBUMIN 2.7 g/dL (3.4-5.0); ANION GAP 12 mmol/L (5-15); CALCIUM 8.1 mg/dL (8.5-10.1); CHLORIDE 105 mmol/L (98-107); CREATININE 0.94 mg/dL (0.55-1.02)
[2020-06-29 01:57] LABS: ALKALINE PHOSPHATASE 172 U/L (45-117); BILIRUBIN,TOTAL 3.6 mg/dL (0.2-1.0); TOTAL PROTEIN 7.2 g/dL (6.4-8.2); TROPONIN I < 0.015 ng/mL (0.000-0.045)
[2020-06-29] MEDS ORDERED: PROMETHAZINE 25 MG/ML, 1ML ONE (01:58)
[2020-06-29] MEDS ORDERED: LORazepam 2 MG/ML, 1ML ONE (01:58)
[2020-06-29] MEDS: PROMETHAZINE 25 MG/ML, 1ML IM ONE ×2 (02:03→02:07)
--- NOTE | 2020-06-29 02:07 | NUR ---
PT TO IMAGING.
[2020-06-29] MEDS ORDERED: MORPHINE SULFATE 4 MG/ML, 1ML ONE (02:22)
[2020-06-29] MEDS ORDERED: ONDANSETRON 2MG/ML, 2ML ONE (02:22)
[2020-06-29] MEDS ORDERED: OMNIPAQUE 350 MG/ML, 100ML BOTTLE ONE (02:25)
[2020-06-29 02:27] LABS: BASOPHILS # (AUTO) 0.02 x10^3/uL (0-0.1); BASOPHILS % (AUTO) 0 % (0-1); EOSINOPHILS # (AUTO) 0.09 x10^3/uL (0-0.4); EOSINOPHILS % (AUTO) 2 % (1-7); LYMPHOCYTES # (AUTO) 1.16 x10^3/uL (1-3.4); LYMPHOCYTES % (AUTO) 20 % (22-44); MD SCAN; MONOCYTES # (AUTO) 0.41 x10^3/uL (0.2-0.8); MONOCYTES % (AUTO) 7 % (2-9); NEUTROPHILS # (AUTO) 4.09 x10^3/uL (1.8-6.8); NEUTROPHILS % (AUTO) 71 % (42-75)
[2020-06-29] MEDS ORDERED: MAALOX/HYOSCYAMINE/LIDOCAINE 45 ML BTL PO ONE (03:30)
[2020-06-29] MEDS ORDERED: POTASSIUM CHLORIDE 40 MEQ in SODIUM CHLORIDE 0.9% 500 ML IV ONE (03:30)
[2020-06-29] MEDS ORDERED: morphine SULFATE 10 MG/ML, 1ML IVPush PRN (03:30)
--- NOTE | 2020-06-29 03:50 | NUR ---
CONFIRMED WITH MD SILVA THAT NO SEPSIS PROTOCOL LABS NEED TO BE DRAWN. Addendum: 06/29/20 at 0429 by TRUMAN EXPRESSED CONCERN ABOUT INITIATING SEPSIS PROTOCOL TO MD SILVA, CONFIRMED WITH THAT NO SEPSIS PROTOCOL NEEDS TO BE INITIATED.
--- NOTE | 2020-06-29 03:51 | NUR ---
FIRST ATTEMPT TO CALL REPORT AT THIS TIME.
[2020-06-29] MEDS ORDERED: ONDANSETRON 2MG/ML, 2ML IVPush ONE (04:00)
--- NOTE | 2020-06-29 04:15 | NUR ---
SECOND ATTEMPT TO CALL REPORT.
--- NOTE | 2020-06-29 04:52 | NUR ---
LATE ENTRY SUMMARY NOTE: PT WAS CHECKED IN BY BAYLEE IGFFORD RN. PT IMMEDIATELY PLACED ON CARDIAC, BP AND O2 MONITORS. PT VSS, LOW O2 SATURATION R/T OPIATES GIVEN. PT HAS REMAINED A&OX4. WAS AT BEDSIDE FROM APPROX 20 MINUTES AFTER ARRIVAL UNTIL 0330. PT HAS HAD CALL LIGHT IN REACH. PT HAS PURWICK IN PLACE, ALL NEEDS MET. PT DENIES WANTING SECOND IV. CONFIRMED COMPATIBILITY OF BANANA BAG WITH K IN NS WITH PHARMACY, " LONG THE RATE OF THE K DOESN'T INFUSE FASTER THAN 10MEQ/HR." CURRENT CIWA SCORE IS 7, NEXT ASSESS IS IN 4 HOURS, WILL CONTINUE TO MONITOR AND REASSESS SOONER IF INDICATED.
[2020-06-29] MEDS: POTASSIUM CHLORIDE 20 MEQ, MAGNESIUM SULFATE 2 GM, THIAMINE 200 MG, MVI ADULT 10 ML, FO... IV SCH (05:00)
[2020-06-29 05:15] LABS: CLOSTRIDIUM DIFFICILE ANTIGEN NEGATIVE; CLOSTRIDIUM DIFFICILE TOXIN NEGATIVE (Negative)
--- NOTE | 2020-06-29 05:25 | NUR ---
[facility]. PATIENT CAN NOT HAVE IV MULTIVITAMIN BAG AND IV POTASSIUM RUNNING AT THE CURRENT RATE. IV POTASSIUM WILL BE SLOWED TO 100ML/HR AND IV MULTIVITAMIN BAG AT 100ML/HR. THIS WILL ALLOW FOR APPROPRIATE DOSAGE PER HOUR OF PATIENT.
--- NOTE | 2020-06-29 05:34 | NUR ---
REPORT GIVEN TO SHANNA CMCLURE RN. PT SITTING UP IN BED, NO SIGNS OF ACUTE DISTRESS.
[2020-06-29 06:01] VITALS: BP 101/65
[2020-06-29 07:00] VITALS: BP 116/66
[2020-06-29] MEDS: TIMOLOL OPHTH 0.5%, 5ML EACHEYE SCH (08:46)
[2020-06-29] MEDS: SENNA/DOCUSATE TABLET PO SCH (09:00)
[2020-06-29] MEDS ORDERED: BENZONATATE 100 MG CAPSULE PO PRN (10:30)
[2020-06-29] MEDS: LORazepam 2 MG/ML, 1ML IVPush PRN (11:03)
[2020-06-29] MEDS ORDERED: GUAIFENESIN/DM 200-20MG, 10ML UDC PO PRN (12:00)
[2020-06-29] MEDS ORDERED: BENZONATATE 100 MG CAPSULE PO ONE (12:00)
[2020-06-29 12:02] VITALS: BP 122/85
[2020-06-29] MEDS: RIFAXIMIN 550 MG TABLET PO SCH ×2 (12:03→21:54)
[2020-06-29] MEDS: ENOXAPARIN 40 MG/0.4 ML SQ SCH (12:03)
[2020-06-29] MEDS: METOPROLOL TARTRATE 25 MG TAB PO SCH ×2 (12:03→21:54)
[2020-06-29] MEDS: AMIODARONE 200 MG TABLET PO SCH (12:03)
[2020-06-29] MEDS: PANTOPRAZOLE 40MG TABLET PO SCH (12:03)
[2020-06-29] MEDS: ONDANSETRON 2MG/ML, 2ML IVPush PRN (13:47)
[2020-06-29 15:04] VITALS: BP 102/71
[2020-06-29 19:37] VITALS: BP 127/76
[2020-06-29] MEDS: LATANOPROST OPHTH 0.005%, 2.5ML EACHEYE SCH (22:08)
[2020-06-29] MEDS: BENZONATATE 100 MG CAPSULE PO PRN (23:42)
[2020-06-30 00:41] VITALS: BP 108/75
[2020-06-30] MEDS: LOPERAMIDE 2 MG CAPSULE PO PRN ×2 (03:13→17:29)
[2020-06-30] MEDS: POTASSIUM CHLORIDE 20 MEQ, MAGNESIUM SULFATE 2 GM, THIAMINE 200 MG, MVI ADULT 10 ML, FO... IV SCH (05:54)
[2020-06-30 06:04] LABS: ALBUMIN 2.4 g/dL (3.4-5.0); ANION GAP 7 mmol/L (5-15); CALCIUM 7.6 mg/dL (8.5-10.1); CHLORIDE 109 mmol/L (98-107)
[2020-06-30 06:09] LABS: ALANINE AMINOTRANSFERASE 36 U/L (12-78); ALKALINE PHOSPHATASE 145 U/L (45-117); BILIRUBIN,TOTAL 3.2 mg/dL (0.2-1.0); CREATININE 0.68 mg/dL (0.55-1.02); TOTAL PROTEIN 6.4 g/dL (6.4-8.2)
[2020-06-30 06:15] LABS: MEAN CORPUSCULAR HEMOGLOBIN 34.1 pg (27.0-34.8); MEAN CORPUSCULAR HGB CONC 32.3 g/dL (32.4-35.8); MEAN CORPUSCULAR VOLUME 105.5 fL (80-100); MEAN PLATELET VOLUME 8.3 fL (7.4-10.4); PLATELET COUNT 120 x10^3/uL (130-400); RED BLOOD COUNT 3.52 x10^6/uL (3.82-5.3); RED CELL DISTRIBUTION WIDTH 23.6 % (9.6-15.2)
[2020-06-30 06:40] VITALS: BP 95/62
[2020-06-30 07:03] LABS: BASOPHILS # (AUTO) 0.06 x10^3/uL (0-0.1); BASOPHILS % (AUTO) 1 % (0-1); EOSINOPHILS # (AUTO) 0.32 x10^3/uL (0-0.4); EOSINOPHILS % (AUTO) 5 % (1-7); LYMPHOCYTES % (AUTO) 24 % (22-44); MD SCAN; MONOCYTES # (AUTO) 0.56 x10^3/uL (0.2-0.8); MONOCYTES % (AUTO) 9 % (2-9); NEUTROPHILS # (AUTO) 3.94 x10^3/uL (1.8-6.8); NEUTROPHILS % (AUTO) 62 % (42-75)
[2020-06-30] MEDS: SENNA/DOCUSATE TABLET PO SCH (09:00)
[2020-06-30] MEDS: RIFAXIMIN 550 MG TABLET PO SCH ×2 (09:34→20:14)
[2020-06-30] MEDS: PANTOPRAZOLE 40MG TABLET PO SCH (09:34)
[2020-06-30] MEDS: AMIODARONE 200 MG TABLET PO SCH (09:34)
[2020-06-30] MEDS: METOPROLOL TARTRATE 25 MG TAB PO SCH ×2 (09:34→20:15)
[2020-06-30] MEDS: ENOXAPARIN 40 MG/0.4 ML SQ SCH (09:35)
[2020-06-30] MEDS: TIMOLOL OPHTH 0.5%, 5ML EACHEYE SCH (09:52)
[2020-06-30 12:16] VITALS: BP 91/58
[2020-06-30] MEDS ORDERED: ACETAMINOPHEN 325 MG TABLET PO PRN (17:00)
[2020-06-30] MEDS: HYDROcodone/APAP 5/325 TABLET PO PRN (17:28)
[2020-06-30] MEDS: SIMETHICONE 80 MG CHEW TAB PO PRN ×2 (17:28→23:17)
[2020-06-30 19:16] VITALS: BP 93/60
[2020-06-30] MEDS: LATANOPROST OPHTH 0.005%, 2.5ML EACHEYE SCH (20:15)
[2020-06-30] MEDS: BENZONATATE 100 MG CAPSULE PO PRN (23:17)
[2020-07-01 00:10] VITALS: BP 92/59
[2020-07-01] MEDS: ONDANSETRON 2MG/ML, 2ML IVPush PRN ×3 (00:58→12:22)
[2020-07-01] MEDS: LOPERAMIDE 2 MG CAPSULE PO PRN ×3 (00:58→18:20)
[2020-07-01] MEDS: BENZONATATE 100 MG CAPSULE PO PRN (05:24)
[2020-07-01] MEDS: POTASSIUM CHLORIDE 20 MEQ, MAGNESIUM SULFATE 2 GM, THIAMINE 200 MG, MVI ADULT 10 ML, FO... IV SCH (05:24)
[2020-07-01 05:38] LABS: ANION GAP 7 mmol/L (5-15); CALCIUM 7.7 mg/dL (8.5-10.1); CHLORIDE 110 mmol/L (98-107); CREATININE 0.62 mg/dL (0.55-1.02)
[2020-07-01 05:43] VITALS: BP 114/75
[2020-07-01 05:51] LABS: MEAN CORPUSCULAR VOLUME 106.6 fL (80-100); MEAN PLATELET VOLUME 8.1 fL (7.4-10.4); PLATELET COUNT 130 x10^3/uL (130-400); RED BLOOD COUNT 3.39 x10^6/uL (3.82-5.3); RED CELL DISTRIBUTION WIDTH 22.6 % (9.6-15.2)
[2020-07-01] MEDS: LORazepam 2 MG/ML, 1ML IVPush PRN ×3 (06:02→20:15)
[2020-07-01 06:32] LABS: BASOPHILS # (AUTO) 0.07 x10^3/uL (0-0.1); BASOPHILS % (AUTO) 1 % (0-1); EOSINOPHILS # (AUTO) 0.34 x10^3/uL (0-0.4); EOSINOPHILS % (AUTO) 5 % (1-7); LYMPHOCYTES # (AUTO) 1.94 x10^3/uL (1-3.4); LYMPHOCYTES % (AUTO) 27 % (22-44); MD SCAN; MONOCYTES # (AUTO) 0.64 x10^3/uL (0.2-0.8); MONOCYTES % (AUTO) 9 % (2-9); NEUTROPHILS # (AUTO) 4.22 x10^3/uL (1.8-6.8); NEUTROPHILS % (AUTO) 59 % (42-75)
[2020-07-01 07:06] VITALS: BP 93/52
[2020-07-01] MEDS: SENNA/DOCUSATE TABLET PO SCH (07:49)
[2020-07-01] MEDS: PANTOPRAZOLE 40MG TABLET PO SCH (08:00)
[2020-07-01] MEDS: RIFAXIMIN 550 MG TABLET PO SCH ×2 (08:00→20:15)
[2020-07-01] MEDS: METOPROLOL TARTRATE 25 MG TAB PO SCH ×2 (08:00→20:15)
[2020-07-01] MEDS: AMIODARONE 200 MG TABLET PO SCH (08:00)
[2020-07-01] MEDS: TIMOLOL OPHTH 0.5%, 5ML EACHEYE SCH (08:01)
[2020-07-01] MEDS: ENOXAPARIN 40 MG/0.4 ML SQ SCH (12:22)
[2020-07-01] MEDS: HYDROcodone/APAP 5/325 TABLET PO PRN ×2 (12:22→18:20)
[2020-07-01] MEDS: SIMETHICONE 80 MG CHEW TAB PO PRN (12:22)
[2020-07-01 12:32] VITALS: BP 99/68
[2020-07-01 16:17] LABS: MICROSCOPIC INDICATED
[2020-07-01 16:39] LABS: AMPHETAMINE SCREEN, URINE Negative (Negative); BARBITURATE SCREEN, URINE Negative (Negative); BENZODIAZEPINE SCREEN, URINE Negative (Negative); CANNABINOID SCREEN, URINE Positive (Negative); COCAINE SCREEN, URINE Negative (Negative); METHADONE SCREEN, URINE Negative (Negative); OPIATE SCREEN, URINE Positive (Negative)
[2020-07-01] MEDS: NS + 20MEQ KCL 1,000 ML IV SCH (17:50)
[2020-07-01 20:12] VITALS: BP 97/62
[2020-07-01] MEDS: LATANOPROST OPHTH 0.005%, 2.5ML EACHEYE SCH (20:20)
[2020-07-02] MEDS: SIMETHICONE 80 MG CHEW TAB PO PRN (01:21)
[2020-07-02] MEDS: NS + 20MEQ KCL 1,000 ML IV SCH ×3 (01:21→18:00)
[2020-07-02] MEDS: ONDANSETRON 2MG/ML, 2ML IVPush PRN ×2 (01:21→08:03)
[2020-07-02 01:32] VITALS: BP 102/64
[2020-07-02] MEDS: LOPERAMIDE 2 MG CAPSULE PO PRN ×4 (02:31→23:51)
[2020-07-02 07:18] VITALS: BP 126/85
[2020-07-02] MEDS: SENNA/DOCUSATE TABLET PO SCH (07:52)
[2020-07-02] MEDS: LORazepam 2 MG/ML, 1ML IVPush PRN ×2 (08:03→20:23)
[2020-07-02] MEDS: AMIODARONE 200 MG TABLET PO SCH (08:03)
[2020-07-02] MEDS: METOPROLOL TARTRATE 25 MG TAB PO SCH ×2 (08:03→20:22)
[2020-07-02] MEDS: PANTOPRAZOLE 40MG TABLET PO SCH (08:03)
[2020-07-02] MEDS: RIFAXIMIN 550 MG TABLET PO SCH ×2 (08:03→20:23)
[2020-07-02] MEDS ORDERED: CEFTRIAXONE PMX 1GM/50ML 50 ML IV SCH (08:30)
[2020-07-02] MEDS: TIMOLOL OPHTH 0.5%, 5ML EACHEYE SCH (09:08)
[2020-07-02] MEDS: HYDROcodone/APAP 5/325 TABLET PO PRN ×2 (09:08→20:22)
[2020-07-02] MEDS: PHENAZOPYRIDINE 200 MG TABLET PO SCH ×3 (09:08→20:22)
[2020-07-02] MEDS: ENOXAPARIN 40 MG/0.4 ML SQ SCH (13:03)
[2020-07-02 15:12] VITALS: BP 99/70
[2020-07-02] MEDS: LATANOPROST OPHTH 0.005%, 2.5ML EACHEYE SCH (20:23)
[2020-07-02 20:36] VITALS: BP 105/70
[2020-07-03 03:40] VITALS: BP 94/59
[2020-07-03] MEDS: LORazepam 2 MG/ML, 1ML IVPush PRN (03:45)
[2020-07-03] MEDS: NS + 20MEQ KCL 1,000 ML IV SCH (03:50)
== END 2020-07-03 08:36 | disposition left against medical advice (07) | DRG 689 ==
LOC: ED 02:25 → EDIP 03:15 → 5SO 05:46 → 4WST 22:34
PROVIDERS: ADMIT Family Medicine; ATTEND Hospitalist
DX: N39.0 Urinary tract infection, site not specified (principal); J96.01 Acute respiratory failure with hypoxia; K76.6 Portal hypertension; K74.60 Unspecified cirrhosis of liver; E86.0 Dehydration; K70.9 Alcoholic liver disease, unspecified; I48.91 Unspecified atrial fibrillation; I10 Essential (primary) hypertension; F10.21 Alcohol dependence, in remission; E87.6 Hypokalemia; F31.9 Bipolar disorder, unspecified; F43.10 Post-traumatic stress disorder, unspecified; I48.0 Paroxysmal atrial fibrillation; Z87.11 Personal history of peptic ulcer disease; Z76.5 Malingerer [conscious simulation]; Z90.710 Acquired absence of both cervix and uterus; K52.9 Noninfective gastroenteritis and colitis, unspecified
CPT/HCPCS: 36415; 71045; 74177; 80048; 80053; 80307; 81001; 83690; 83735; 84100; 84484; 85025; 85379; 87077; 87086; 87186; 87324; 89055; 93005; 96374; 96375; 99285; G0378; J0696; J1650; J2405; J2550; J3411; J3475; J3480; J7042; Q9967; J2060; J2270; J7030; J7040

== ENCOUNTER → 2020-09-25 | Outpatient (CLI) | payer MEDICARE ==
[~2020-09-25] MED LIST changes: -LATA2.5D3 EACHEYE; +LATA2.5D4 EACHEYE
[2020-09-25 15:02] LABS: BASOPHILS % (AUTO) 1 % (0-1); EOSINOPHILS % (AUTO) 4 % (1-7); LYMPHOCYTES % (AUTO) 28 % (22-44); MEAN CORPUSCULAR HEMOGLOBIN 32.8 pg (27.0-34.8); MEAN CORPUSCULAR HGB CONC 33.1 g/dL (32.4-35.8); MEAN PLATELET VOLUME 9.4 fL (7.4-10.4); MONOCYTES % (AUTO) 7 % (2-9); NEUTROPHILS % (AUTO) 61 % (42-75); PLATELET COUNT 157 x10^3/uL (130-400); RED BLOOD COUNT 3.39 x10^6/uL (3.82-5.3); RED CELL DISTRIBUTION WIDTH 16.2 % (9.6-15.2)
[2020-09-25 15:04] LABS: MD NO
[2020-09-25 15:14] LABS: ALANINE AMINOTRANSFERASE 24 U/L (12-78); ALBUMIN 2.6 g/dL (3.4-5.0); ANION GAP 12 mmol/L (5-15); CHLORIDE 110 mmol/L (98-107); CREATININE 0.85 mg/dL (0.55-1.02)
[2020-09-25 15:40] LABS: ALKALINE PHOSPHATASE 189 U/L (45-117); BILIRUBIN,TOTAL 2.7 mg/dL (0.2-1.0); FREE T4 (FREE THYROXINE) 1.22 ng/dL (0.76-1.46); TOTAL PROTEIN 7.8 g/dL (6.4-8.2)
== END | disposition home or self-care (01) ==
LOC: LAB 14:38
PROVIDERS: ATTEND Internal Medicine Gastroenterology
DX: K70.11 Alcoholic hepatitis with ascites (principal); K76.6 Portal hypertension; E80.6 Other disorders of bilirubin metabolism; D53.9 Nutritional anemia, unspecified; D68.9 Coagulation defect, unspecified; K58.0 Irritable bowel syndrome with diarrhea
CPT/HCPCS: 36415; 80053; 82105; 82607; 84439; 84443; 84481; 85025

== ENCOUNTER → 2020-09-28 | Outpatient (CLI) | payer MEDICARE | END | disposition home or self-care (01) | LOC: RAD 08:58 | PROVIDERS: ATTEND Internal Medicine Gastroenterology | DX: K80.20 Calculus of gallbladder without cholecystitis without obstruction (principal); K58.0 Irritable bowel syndrome with diarrhea; K70.11 Alcoholic hepatitis with ascites; K76.6 Portal hypertension; E80.6 Other disorders of bilirubin metabolism; D53.9 Nutritional anemia, unspecified; D68.9 Coagulation defect, unspecified | CPT/HCPCS: 76700 ==

== ENCOUNTER → 2020-11-06 | Outpatient (CLI) | payer MEDICARE ==
[~2020-11-06] MED LIST changes: -ESCI20TA PO; +ESCI20TA5 PO
[2020-11-06 12:47] LABS: ALBUMIN 2.5 g/dL (3.4-5.0); ANION GAP 8 mmol/L (5-15); CALCIUM 7.8 mg/dL (8.5-10.1); CHLORIDE 110 mmol/L (98-107)
[2020-11-06 13:01] LABS: ALANINE AMINOTRANSFERASE 28 U/L (12-78); ALKALINE PHOSPHATASE 223 U/L (45-117); BILIRUBIN,TOTAL 2.7 mg/dL (0.2-1.0); CREATININE 0.82 mg/dL (0.55-1.02); TOTAL PROTEIN 6.8 g/dL (6.4-8.2)
== END | disposition home or self-care (01) ==
LOC: LAB 12:07
PROVIDERS: ATTEND Nurse Practitioner Primary Care
DX: E87.6 Hypokalemia (principal); E55.9 Vitamin D deficiency, unspecified
CPT/HCPCS: 36415; 80053; 82306